=== PATIENT | male | born 1950 | race Caucasian/White ===

== ENCOUNTER 2018-05-04 21:52 | Emergency (ER) | payer OTHER, MEDICARE ==
[2018-05-04] MEDS: Albuterol/Ipratropium 3.0-0.5 MG/3 ML Neb Soln NEB PRN (22:20)
[2018-05-04] MEDS ORDERED: methylPREDNISolone Sodium Succinate 125 MG/2 ML SDV IVPUSH ONE (22:35)
[2018-05-04] MEDS ORDERED: Albuterol 0.083% 2.5 MG/3 ML Neb Soln NEB PRN (22:47)
[2018-05-05] MEDS: methylPREDNISolone Sodium Succinate 40 MG/1 ML SDV IVPUSH SCH ×4 (00:19→12:50)
[2018-05-05] MEDS: Sodium Chloride 0.9% 1,000 ML IV SCH ×2 (00:46→08:43)
[2018-05-05] MEDS: Azithromycin 250 MG Tab PO SCH ×2 (00:46→10:48)
[2018-05-05] MEDS ORDERED: LORazepam 0.5 MG Tab ONE (01:06)
[2018-05-05] MEDS: LORazepam 0.5 MG Tab PO ONE ×2 (01:15→02:00)
[2018-05-05] MEDS ORDERED: Albuterol/Ipratropium 3.0-0.5 MG/3 ML Neb Soln ONE (02:49)
--- NOTE | 2018-05-05 07:46 | HP ---
DATE OF SERVICE: 05/04/2018 Observation Admission Note HISTORY OF PRESENT ILLNESS: The patient is a 68-year-old male who comes in today with a chief complaint of shortness of breath. The patient has a history of COPD. He was in about a week ago with a similar COPD exacerbation. [facility] but he got increasingly short of breath tonight and presented to the ER. ALLERGIES: NKDA. CURRENT MEDICATIONS: Hydroxyzine 10 mg p.o. t.i.d., Symbicort 160/4.5, 1 puff b.i.d., alfuzosin 10 mg p.o. daily, and Zocor 20 mg p.o. at bedtime. PHYSICAL EXAMINATION: GENERAL: He is alert, oriented, appears somewhat short of breath. VITAL SIGNS: His pulse is 104, blood pressure is 138/85, temperature is 97.8, respirations 24, O2 saturation is 92% on 2 L. HEENT: Unremarkable other than he has an opacified right eye. LUNGS: Have very decreased breath sounds, really cannot hear much air flow. HEART: Regular sinus rhythm. ABDOMEN: Benign. EXTREMITIES: The patient has some 1+ lower extremity edema. LABORATORY DATA: White count is 9.5, hemoglobin and hematocrit is 12.4 and 36.1. Sodium is low at 122, potassium is good at 4.0, chloride is 90, glucose is 104, BUN is 8, creatinine is 0.76. ASSESSMENT: Chronic obstructive pulmonary disease exacerbation and mild hyponatremia. PLAN: We will go ahead and refer him for observation. I have given him 125 of Solu-Medrol in the ER. We will give him 500 mg of azithromycin p.o. We will put him on the Solu-Medrol 40 mg and probably put him on some prednisone in the morning. The last time the patient was in, his respiratory rate was in the 40s and he looked much worse and he was good to go the next day, so at this time, we are just going to put him in for observation rather than admission. We will put him on some normal saline at 125 mL an hour and give him DuoNeb q.6 and albuterol q.2 hours p.r.n., and I would anticipate that if he is anything like he was the last time, he will turn around fairly quickly. We will likely need to put him on a longer course of prednisone at discharge. He might want to [facility] that [facility] the [facility] whether or not he might benefit from a low dose of prednisone since he has been in twice now in the last week. He will definitely need a longer course and may end up needing a low-dose continuously. I did suggest that he might want to see about getting a doctor closer rather than having to travel [facility]. JOHN
[2018-05-05] MEDS: ALFUZOSIN HCL 10 MG PO SCH ×2 (09:46→10:48)
[2018-05-05] MEDS: HYDROXYZINE HCL 10 MG PO SCH ×2 (09:46→10:49)
[2018-05-05] MEDS: Albuterol/Ipratropium 3.0-0.5 MG/3 ML Neb Soln NEB PRN (10:58)
--- NOTE | 2018-05-05 17:06 | CR ---
DATE OF SERVICE: 05/04/18 CLINICAL DATA: SOB PA AND LATERAL CHEST: Comparison is made to a prior exam dated 04/28/16. The heart size is normal. The lungs remain hyperexpanded but clear. No pneumothorax. No pleural effusions. No evidence of acute intrathoracic disease. [id number] [facility]
[2018-05-05] MEDS ORDERED: Non-Formulary Medication 1 Each (Budesonide/Formoterol Fumarate [Symbicort 160-4.5 Mcg Inh IH SCH (20:00)
[2018-05-05] MEDS ORDERED: Non-Formulary Medication 1 Each (Simvastatin [Zocor] 20 MG) PO SCH (20:00)
--- NOTE | 2018-05-15 18:42 | PCM.DCSUM1 ---
Discharge Summary - Hospital Course HPI Initial Comments: 68 yr male placed on observation with COPD exacerbation and hyponatremia. Solu- Medrol IV and Azithromycin given with duoneb. Pt has been using the incentive spirometer. He is feeling better today, will discharge to home to care of . Will discharge with a Prednisone taper and Azithromycin. Diagnosis: Stroke: No - Discharge Data Discharge Date: 05/05/18 Discharge Disposition: Home, Self-Care 01 Condition: Good - Discharge Diagnosis/Problem(s) (1) COPD (chronic obstructive pulmonary disease) SNOMED Code(s): 95876722 ICD Code: J44.9 - CHRONIC OBSTRUCTIVE PULMONARY DISEASE, UNSPECIFIED Status : Acute (2) Hyponatremia SNOMED Code(s): 11161678 ICD Code: E87.1 - HYPO-OSMOLALITY AND HYPONATREMIA Status: Acute - Patient Instructions Diet: Regular Diet as Tolerated Activity: As Tolerated Showering/Bathing: May Shower - Discharge Plan *PRESCRIPTION DRUG MONITORING PROGRAM REVIEWED*: Not Applicable *COPY OF PRESCRIPTION DRUG MONITORING REPORT IN PATIENT JACOB: Not Applicable Prescriptions/Med Rec: Azithromycin 500 mg PO DAILY #5 tablet predniSONE [Prednisone] 10 mg PO DAILY #50 tablet Home Medications: Home Meds Alfuzosin HCl [Alfuzosin HCl ER] 10 mg PO DAILY 04/28/18 [History] Budesonide/Formoterol Fumarate [Symbicort 160-4.5 Mcg Inhaler] 1 puff IH BID [History] Simvastatin [Zocor] 20 mg PO BEDTIME 04/28/18 [History] hydrOXYzine HCl [Atarax] 10 mg PO TID 04/28/18 [History] Azithromycin 500 mg PO DAILY #5 tablet 05/05/18 [Rx] predniSONE [Prednisone] 10 mg PO DAILY #50 tablet 05/05/18 [Rx] Oxygen Therapy Mode: Nasal Cannula Oxygen Flow Rate (L/min): 1 Maintain SpO2% greater than: 92 Patient Handouts: Chronic Obstructive Pulmonary Disease, [id number], Azithromycin tablets, CPAP and BiPAP Information, Prednisone tablets Forms: ED Department Discharge Referrals: PCP,None [Primary Care Provider] - - Discharge Summary/Plan Comment DC Time >30 min.: No Discharge Summary/Plan Comment: Will discharge today with Prednisone taper and Azithromycin. Pt should F/U with PCP this week. Discussed possible need for daily Prednisone. Recommend rest and hydration to thin secretions. Discussed option of PCP closer to home as pt has to travel to [place] for all his appointments. He will check at his next appointment to see if this can be approved. Return to ER if symptoms worsen or persist. - General Info Date of Service: 05/05/18 Admission Dx/Problem (Free Text: COPD exacerbation and hyponatremia Subjective Update: Pt states he is feeling better today and would like to go home. - Review of Systems General: Reports: Weakness HEENT: Reports: No Symptoms Pulmonary: Reports: Cough, Sputum Cardiovascular: Reports: Dyspnea on Exertion Gastrointestinal: Reports: No Symptoms Genitourinary: Reports: No Symptoms Musculoskeletal: Reports: No Symptoms Skin: Reports: No Symptoms Neurological: Reports: No Symptoms Psychiatric: Reports: No Symptoms - Patient Data Vitals - Most Recent: Last Vital Signs Temp 97.9 F 05/05/18 09:00 Pulse 99 05/05/18 09:00 Resp 16 05/05/18 06:00 BP 126/77 05/05/18 09:00 Pulse Ox 96 05/05/18 09:00 Weight - Most Recent: 106 lb 12.8 oz Med Orders - Current: Current Medications Discontinued Medications Albuterol (Proventil Neb Soln) 2.5 mg NEB Q2H PRN PRN Reason: Shortness of Breath Last Admin: 05/05/18 00:46 Dose: 2.5 mg Albuterol/Ipratropium (Duoneb 3.0-0.5 Mg/3 Ml) 3 ml NEB Q6H PRN PRN Reason: Shortness of Breath Last Admin: 05/05/18 10:58 Dose: 3 ml Albuterol/Ipratropium (Duoneb 3.0-0.5 Mg/3 Ml) 3 ml .ROUTE .STK-MED ONE Stop: 05/05/18 02:50 Azithromycin (Zithromax) 500 mg PO DAILY [facility] [place] Last Admin: 05/05/18 10:48 Dose: 500 mg Sodium Chloride (Normal Saline) 1,000 mls @ 125 mls/hr IV ASDIRECTED [facility] [place] Last Admin: 05/05/18 08:43 Dose: 125 mls/hr Lorazepam (Ativan) Confirm Administered Dose 0.5 mg .ROUTE .STK-MED ONE Stop: 05/05/18 01:07 Last Admin: 05/05/18 02:18 Dose: Not Given Lorazepam (Ativan) 0.5 mg PO ONETIME ONE Stop: 05/05/18 01:17 Last Admin: 05/05/18 02:00 Dose: 0.5 mg Methylprednisolone Sodium Succinate (Solu-Medrol) 125 mg IVPUSH ONETIME ONE Stop: 05/04/18 22:36 Last Admin: 05/04/18 22:45 Dose: 125 mg Methylprednisolone Sodium Succinate (Solu-Medrol) 40 mg IVPUSH Q6H [facility] [place] Last Admin: 05/05/18 12:50 Dose: Not Given Non-Formulary Medication (Alfuzosin Hcl [Alfuzosin Hcl Er]) 10 mg PO DAILY [facility] [place] Last Admin: 05/05/18 10:48 Dose: 10 mg Non-Formulary Medication (Hydroxyzine Hcl [Hydroxyzine]) 10 mg PO TID [facility] [place] Last Admin: 05/05/18 10:49 Dose: 10 mg Non-Formulary Medication (Simvastatin [Zocor]) 20 mg PO BEDTIME [facility] [place] Non-Formulary Medication (Budesonide/Formoterol Fumarate [Symbicort 160-4.5 Mcg Inhaler]) 1 puff IH BID LETICIA - Exam Quality Assessment: Reports: Supplemental Oxygen General: Reports: Alert, Oriented, Cooperative, No Acute Distress HEENT: Reports: Pupils Equal, Mucous Membr. Moist/[place] Neck: Reports: Supple, Trachea Midline Lungs: Reports: Decreased Breath Sounds (to bases), Wheezing (Occasional wheeze noted and clears with cough). Denies: Rales Cardiovascular: Reports: Regular Rate, Regular Rhythm GI/Abdominal Exam: Normal Bowel Sounds, Soft, Non-Tender Back Exam: Reports: Normal Inspection Extremities: Other (Mild pedal edema) Skin: Reports: Warm, Dry Neurological: Reports: No New Focal Deficit, Normal Speech, Strength Equal Bilateral Psy/Mental Status: Reports: Alert, Normal Affect, Normal Mood
== END 2018-05-05 13:36 | disposition home or self-care (01) ==
LOC: LB.ED 21:52 → LB.MS 22:41 → UNDOADMOB 23:15 → LB.MS 23:15
PROVIDERS: ADMIT Family Medicine; ATTEND Family Medicine
DX: J44.1 Chronic obstructive pulmonary disease with (acute) exacerbation (principal); E87.1 Hypo-osmolality and hyponatremia; Z79.899 Other long term (current) drug therapy
CPT/HCPCS: 36415; 71046; 80048; 85025; 96361; 96374; 96376; 99284; A9270; G0378; J2920; J2930; J7030; J7620-GY

== ENCOUNTER 2018-08-23 07:04 | Emergency (ER) | payer MEDICARE, OTHER ==
[2018-08-23] MEDS: Albuterol/Ipratropium 3.0-0.5 MG/3 ML Neb Soln NEB PRN (08:02)
[2018-08-23] MEDS: Budesonide 0.5 MG/2 ML Neb Susp NEB ONE (08:11)
[2018-08-23] MEDS: methylPREDNISolone Sodium Succinate 125 MG/2 ML SDV IVPUSH ONE (08:16)
[2018-08-23] MEDS ORDERED: Azithromycin 250 MG Tab ONE (09:00)
[2018-08-23] MEDS ORDERED: predniSONE 10 MG Tab ONE (09:00)
[2018-08-23] MEDS: Budesonide 0.5 MG/2 ML Neb Susp ONE (11:29)
[2018-08-23] MEDS: Albuterol/Ipratropium 3.0-0.5 MG/3 ML Neb Soln ONE (11:29)
[2018-08-23] MEDS: methylPREDNISolone Sodium Succinate 125 MG/2 ML SDV ONE (11:29)
--- NOTE | 2018-08-23 16:03 | ER ---
HISTORY OF PRESENT ILLNESS: A 68-year-old male who comes in by ambulance with complaints of shortness of breath, coughing, and feeling weak. The patient has history of COPD and he feels this is another flareup. Symptoms started about 4 days ago, but overnight it got worse. He does have DuoNeb at home and he takes Pulmicort per nebulizer b.i.d. at home as well. The patient states he has been using his DuoNeb more often than he usually does, but he seems like he just keeps getting slowly worse. The patient has not had any problems with nausea or vomiting and he is not aware of running a fever. OBJECTIVE: GENERAL APPEARANCE: The patient is awake and alert. He is in mild respiratory distress. VITAL SIGNS: Reviewed. He has a temp of 100 degrees, blood pressure initially 197/98, respirations 24, O2 sats are 88% on room air. HEENT: Oral mucous membranes are dry. Tonsils are not enlarged or injected. LUNGS: Reveals severe reduced air exchange and scattered wheezes. I do not hear any rales or rhonchi. CARDIAC: Heart sounds distinct. SKIN: Warm and dry. The patient has just mild edema on both lower legs and ankles, approximately 1+. INITIAL TREATMENT PLAN: DuoNeb was given followed by Pulmicort treatment. I also gave the patient Solu-Medrol 125 mg IV. LABORATORY AND X-RAY DATA: Today include a CBC showing a white count of 8.6, neutrophils are 68.5. Comprehensive metabolic panel shows a sodium level of 127, chloride is 89. BNP is 367. DIAGNOSIS: Chronic obstructive pulmonary disease exacerbation. TREATMENT PLAN: The patient responded quickly to the initial treatment measures and within about 20 minutes, stated that he felt significantly better. A chest x-ray was obtained approximately at this time showing chronic changes, no pneumonia. I had a discussion with the patient and his family about staying in the hospital for a day or so for monitoring versus sending him home with medications and they all feel comfortable with the patient being discharged with the right medications. I will therefore send him home with prednisone 40 mg a day for 3 days, then 30 mg a day for 1 day that is all many tablets we have in our bottle. The patient has an appointment coming up [facility] on [facility], which will work out well. I also will put him on a Z-Timur. He will take the first dose of Zithromax here in the emergency room. The patient is to rest and use his home medications as directed. [facility] Followup should be sooner here as needed. MIREYA/MODL /[id number]
--- NOTE | 2018-08-24 11:46 | CR ---
Date of Service: 08/23/18 Clinical Data: SOB - COPD. [place] CHEST: Comparison is made to a prior exam dated 05/04/18. The heart size is normal. There is calcification of the aortic arch. There are emphysematous changes throughout both lungs . There is a focus of increased density in the left lung base adjacent to the left hemidiaphragm consistent with basilar atelectasis or infiltrate. There are atelectatic/ fibrotic changes in the right mid lung lateral to the right hilum. No pneumothorax. No pleural effusions. The right hilum does appear mildly prominent. It is probably accentuated by the poor inspiration. It does appear significantly changed from the prior exam. The remainder of the exam is unchanged from the prior. [id number] [facility]TD[facility]
== END 2018-08-23 09:40 | disposition home or self-care (01) ==
LOC: LB.ED 07:04
DX: J44.1 Chronic obstructive pulmonary disease with (acute) exacerbation (principal)
CPT/HCPCS: 36415; 71045; 80053; 83880; 85025; 87070; 87205; 96374; 99285; A0425; A0429; A9270; J2930; 99284; J7620-GY

== ENCOUNTER 2018-09-15 09:47 | Emergency (ER) | payer MEDICARE, OTHER ==
--- NOTE | 2018-09-15 10:33 | EDM.PDOC ---
ED HPI GENERAL MEDICAL PROBLEM - General Chief Complaint: Respiratory Problem Stated Complaint: short of breath Time Seen by Provider: 09/15/18 10:25 Source of Information: Reports: Patient, Family, RN History Limitations: Reports: No Limitations - History of Present Illness INITIAL COMMENTS - FREE TEXT/NARRATIVE: 68 yr male presents with shortness of breath. States he has a history of this and was told to come in when this starts to prevent hospitalizations. States last week he did start on Prednisone 10 mg PO daily for the last few days, medicine from the [place]. He is talking and no respiratory distress noted. He does have home oxygen and portable oxygen. He did take the Lasix today. SpO2= 99%. states he was struggling with breathing yesterday and today. - Related Data Allergies Allergy/AdvReac Type Severity Reaction Status Date / Time No Known Allergies Allergy Verified 04/28/18 22:35 Home Meds: Home Meds Alfuzosin HCl [Alfuzosin HCl ER] 10 mg PO DAILY 04/28/18 [History] Budesonide/Formoterol Fumarate [Symbicort 160-4.5 Mcg Inhaler] 1 puff IH BID [History] Simvastatin [Zocor] 20 mg PO BEDTIME 04/28/18 [History] predniSONE [Prednisone] 10 mg PO DAILY #50 tablet 05/05/18 [Rx] Azithromycin 500 mg PO DAILY #5 tablet 09/15/18 [Rx] Furosemide [Lasix] 20 mg PO DAILY 09/15/18 [History] Ipratropium/Albuterol Sulfate [Iprat-Albut 0.5-3(2.5) mg/3 ml] 0.5 - 3 mg IH QID 09/15/18 [History] LORazepam 0.5 mg PO TID 09/15/18 [History] predniSONE [Prednisone] 10 mg PO DAILY #30 tablet 09/15/18 [Rx] Past Medical History HEENT History: Reports: Hard of Hearing Cardiovascular History: Reports: High Cholesterol Respiratory History: Reports: COPD Genitourinary History: Reports: Retention, Urinary, Other (See Below) Other Genitourinary History: stress incontinence Musculoskeletal History: Reports: Other (See Below) Other Musculoskeletal History: Generalized weakness Psychiatric History: Reports: Anxiety - Infectious Disease History Infectious Disease History: Reports: Chicken Pox - Past Surgical History Male Surgical History: Reports: None Social & Family History - Family History Family Medical History: Noncontributory - Caffeine Use Caffeine Use: Reports: Coffee ED ROS GENERAL - Review of Systems Review Of Systems: See Below Constitutional: Reports: No Symptoms HEENT: Reports: No Symptoms Respiratory: Reports: Shortness of Breath, Cough Cardiovascular: Reports: Dyspnea on Exertion GI/Abdominal: Reports: No Symptoms : Reports: No Symptoms Musculoskeletal: Reports: No Symptoms Skin: Reports: No Symptoms Neurological: Reports: No Symptoms Psychiatric: Reports: Anxiety Hematologic/Lymphatic: Reports: No Symptoms ED EXAM, GENERAL - Physical Exam Exam: See Below Exam Limited By: No Limitations General Appearance: Alert, WD/WN, No Apparent Distress Ears: Hearing Grossly Normal Nose: Normal Inspection, Normal Mucosa Throat/Mouth: Normal Inspection, Normal Voice, No Airway Compromise Head: Atraumatic, Normocephalic Neck: Normal Inspection, Supple, Non-Tender Respiratory/Chest: Decreased Breath Sounds, Wheezing Cardiovascular: Normal Peripheral Pulses, Regular Rate, Rhythm, No Edema Extremities: No Pedal Edema Neurological: Alert, Oriented, Normal Cognition Psychiatric: Normal Affect, Normal Mood Skin Exam: Warm, Dry, Intact, Normal Color Course - Vital Signs Last Recorded V/S: Last Vital Signs Temp 98.5 F 09/15/18 11:50 Pulse 93 09/15/18 11:50 Resp 20 09/15/18 11:50 BP 128/73 09/15/18 11:50 Pulse Ox 97 09/15/18 11:50 - Orders/Labs/Meds Orders: Active Orders 24 hr Category Date Time Status RT Aerosol Therapy [RC] ASDIRECTED Care 09/15/18 10:45 Active Saline Lock Insert [OM.PC] Routine Oth 09/15/18 10:34 Ordered Labs: Laboratory Tests 09/15/18 09/15/18 09/15/18 Range/Units 10:50 10:50 11:55 WBC 6.7 D (4.0-11.0) K/uL RBC 4.29 L (4.50-6.50) M/uL Hgb 12.8 L (13.0-18.0) g/dL Hct 38.2 L (40.0-54.0) % MCV 89 (76-96) fL MCH 29.8 (27.0-32.0) pg MCHC 33.5 (31.0-35.0) g/dL RDW 13.5 (11.0-16.0) % Plt Count 251 (150-400) K/uL MPV 8.8 (6.0-10.0) fL Neut % (Auto) 39.2 L (45.0-70.0) % Lymph % (Auto) 36.3 (20.0-40.0) % [place] % (Auto) 14.3 H (3.0-10.0) % Eos % (Auto) 9.2 H (1.0-5.0) % Baso % (Auto) 1.0 H (0.0-0.5) % Neut # (Auto) 2.64 (2.00-7.50) K/uL Lymph # (Auto) 2.44 (1.50-4.00) K/uL [place] # (Auto) 0.96 H (0.20-0.80) K/uL Eos # (Auto) 0.62 H (0.04-0.40) K/uL Baso # (Auto) 0.07 (0.02-0.10) K/uL Sodium 133 L (136-145) mmol/L Potassium 4.1 (3.5-5.1) mmol/L Chloride 93 L (98-107) mmol/L Carbon Dioxide 34.3 H (21.0-32.0) mmol/L Anion Gap 9.8 (5.0-15.0) mmol/L BUN 7 L (8-26) mg/dL Creatinine 0.71 D (0.70-1.30) mg/dL Est Cr Clr Drug Dosing TNP Estimated GFR (MDRD) > 60 (>60) MLS/MIN BUN/Creatinine Ratio 9.9 (6-25) Glucose 109 H (74-100) mg/dL Calcium 8.7 (8.5-10.1) mg/dL Urine Color Yellow Urine Appearance Clear (CLEAR) Urine pH 7.0 (5.0-8.0) Ur Specific [place] 1.015 (1.003-1.030) Urine Protein Negative (NEGATIVE) mg/dL Urine Glucose (UA) Negative (NEGATIVE) mg/dL Urine Ketones Negative (NEGATIVE) mg/dL Urine Occult Blood Negative (NEGATIVE) Urine Nitrite Negative (NEGATIVE) Urine Bilirubin Negative (NEGATIVE) Urine Urobilinogen 0.2 (0.2-1.0) E.U./dL Ur Leukocyte Esterase Negative (NEGATIVE) Urine RBC Not seen /HPF Urine WBC Not seen /HPF Meds: Medications Discontinued Medications Generic Name Dose Route Start Last Admin Trade Name Freq PRN Reason Stop Dose Admin Albuterol/Ipratropium 3 ml 09/15/18 10:44 09/15/18 10:55 Duoneb 3.0-0.5 Mg/3 Ml NEB 09/15/18 23:59 3 ml Q4H PRN Administration Shortness of Breath Azithromycin Confirm 09/15/18 11:40 09/15/18 16:24 Zithromax Administered 09/15/18 11:41 Not Given Dose 500 mg .ROUTE .STK-MED ONE Azithromycin 500 mg 09/15/18 11:50 09/15/18 16:25 Zithromax PO 09/15/18 11:51 500 mg ONETIME ONE Administration Methylprednisolone Sodium Succinate 125 mg 09/15/18 10:34 09/15/18 11:14 Solu-Medrol IM 09/15/18 10:35 125 mg ONETIME ONE Administration Methylprednisolone Sodium Succinate Confirm 09/15/18 11:17 09/15/18 11:17 Solu-Medrol Administered 09/15/18 11:18 Not Given Dose 125 mg .ROUTE .STK-MED ONE Sodium Chloride 10 ml 09/15/18 10:34 Saline Flush FLUSH ASDIRECTED PRN Keep Vein Open Departure - Departure Time of Disposition: 12:07 Disposition: Home, Self-Care 01 Condition: Good Clinical Impression: COPD (chronic obstructive pulmonary disease) - Discharge Information *PRESCRIPTION DRUG MONITORING PROGRAM REVIEWED*: Not Applicable *COPY OF PRESCRIPTION DRUG MONITORING REPORT IN PATIENT JACOB: Not Applicable (F/ U with Primary care provider next week.) Prescriptions: Azithromycin 500 mg PO DAILY #5 tablet predniSONE [Prednisone] 10 mg PO DAILY #30 tablet Instructions: Chronic Obstructive Pulmonary Disease Exacerbation, [id number] Referrals: PCP,Unknown [Primary Care Provider] - Forms: ED Department Discharge Additional Instructions: Discharge home. Activity as tolerated, diet as tolerated. Prescriptions sent over to pharmacy. Follow up in clinic with your primary provider. - My Orders Last 24 Hours: My Active Orders 09/15/18 10:34 Saline Lock Insert [OM.PC] Routine 09/15/18 10:45 RT Aerosol Therapy [RC] ASDIRECTED - Assessment/Plan Last 24 Hours: My Active Orders 09/15/18 10:34 Saline Lock Insert [OM.PC] Routine 09/15/18 10:45 RT Aerosol Therapy [RC] ASDIRECTED Plan: COPD exacerbation: Pt shortness of breath improved with Duo-neb treatment and Solu-medrol IM. Unable to obtain IV access. Will discharge to care of with Azithromycin and Prednisone taper. F/U with PCP next week.
[2018-09-15] MEDS ORDERED: methylPREDNISolone Sodium Succinate 125 MG/2 ML SDV IM ONE (10:34)
[2018-09-15] MEDS ORDERED: Sodium Chloride 0.9% 10 ML Syringe FLUSH PRN (10:34)
[2018-09-15] MEDS ORDERED: Albuterol/Ipratropium 3.0-0.5 MG/3 ML Neb Soln NEB PRN (10:44)
[2018-09-15] MEDS ORDERED: methylPREDNISolone Sodium Succinate 125 MG/2 ML SDV ONE (11:17)
[2018-09-15] MEDS ORDERED: Azithromycin 500 MG Tab ONE (11:40)
[2018-09-15] MEDS ORDERED: Azithromycin 500 MG Tab PO ONE (11:50)
== END 2018-09-15 12:07 | disposition home or self-care (01) ==
LOC: LB.ED 09:47
DX: J44.9 Chronic obstructive pulmonary disease, unspecified (principal); E78.00 Pure hypercholesterolemia, unspecified; F41.9 Anxiety disorder, unspecified; Z79.899 Other long term (current) drug therapy
CPT/HCPCS: 36415; 80048; 81001; 85025; 96372; 99284-25; A9270-GY; J2930; J7620-GY

== ENCOUNTER 2019-01-26 16:40 | Emergency (ER) | payer OTHER, MEDICARE ==
--- NOTE | 2019-01-26 17:04 | EDM.PDOC ---
ED HPI GENERAL MEDICAL PROBLEM - General Chief Complaint: ENT Problem Stated Complaint: NOSE BLEEDS Time Seen by Provider: 01/26/19 16:55 Source of Information: Reports: Patient, Family, RN History Limitations: Reports: No Limitations - History of Present Illness INITIAL COMMENTS - FREE TEXT/NARRATIVE: 68 yr male presents with epistaxis. States this has happened on/off at least tid for a couple days. States he was active and moving wood for winter heat. He did have a nose bleed on the way here and none now. No shortness of breath noted. - Related Data Allergies Allergy/AdvReac Type Severity Reaction Status Date / Time amoxicillin [From Augmentin] Allergy Rash Verified 01/26/19 17:50 clavulanic acid Allergy Rash Verified 01/26/19 17:50 [From Augmentin] Home Meds: Home Meds Alfuzosin HCl [Alfuzosin HCl ER] 10 mg PO DAILY 04/28/18 [History] Budesonide/Formoterol Fumarate [Symbicort 160-4.5 Mcg Inhaler] 1 puff IH BID [History] Simvastatin [Zocor] 20 mg PO BEDTIME 04/28/18 [History] predniSONE [Prednisone] 10 mg PO DAILY #50 tablet 05/05/18 [Rx] Azithromycin 500 mg PO DAILY #5 tablet 09/15/18 [Rx] Furosemide [Lasix] 20 mg PO DAILY 09/15/18 [History] Ipratropium/Albuterol Sulfate [Iprat-Albut 0.5-3(2.5) mg/3 ml] 0.5 - 3 mg IH QID 09/15/18 [History] LORazepam 0.5 mg PO TID 09/15/18 [History] predniSONE [Prednisone] 10 mg PO DAILY #30 tablet 09/15/18 [Rx] Past Medical History HEENT History: Reports: Hard of Hearing Cardiovascular History: Reports: High Cholesterol Respiratory History: Reports: COPD Genitourinary History: Reports: Retention, Urinary, Other (See Below) Other Genitourinary History: stress incontinence Musculoskeletal History: Reports: Other (See Below) Other Musculoskeletal History: Generalized weakness Psychiatric History: Reports: Anxiety - Infectious Disease History Infectious Disease History: Reports: Chicken Pox - Past Surgical History Male Surgical History: Reports: None Social & Family History - Family History Family Medical History: Noncontributory - Caffeine Use Caffeine Use: Reports: Coffee ED ROS ENT - Review of Systems Review Of Systems: See Below Constitutional: Denies: Fever, Chills HEENT: Reports: Glasses, Nosebleed, Other (thirsty) Respiratory: Reports: Other (short of breath on exertion) Cardiovascular: Denies: Chest Pain, Edema GI/Abdominal: Denies: Abdominal Pain Skin: Reports: Other (itchy skin, bruising to arms from itching) Neurological: Reports: No Symptoms Psychiatric: Reports: Anxiety Hematologic/Lymphatic: Reports: Easy Bruising ED EXAM, ENT - Physical Exam Exam: See Below General Appearance: Alert, No Apparent Distress Ears: Normal External Exam, Hearing Grossly Normal Nose: Nasal Tenderness, Septal Deformity, Dried Blood. No: Active Bleeding Mouth/Throat: Other (poor dentition) Head: Atraumatic, Normocephalic Neck: Normal Inspection, Supple, Non-Tender Respiratory/Chest: No Respiratory Distress, Decreased Breath Sounds. No: Crackles, Rhonchi Cardiovascular: Regular Rate, Rhythm, No Edema Extremities: Normal Range of Motion, Non-Tender Neurological: Alert, Oriented, Normal Cognition Psychiatric: Normal Affect, Normal Mood Skin: Warm, Dry, Normal Color, Ecchymosis (to forearms) Course - Vital Signs Last Recorded V/S: Last Vital Signs Temp 99.3 F 01/26/19 16:49 Pulse 97 01/26/19 17:08 Resp 18 01/26/19 16:49 BP 142/84 H 01/26/19 16:49 Pulse Ox 97 01/26/19 17:08 - Orders/Labs/Meds Labs: Laboratory Tests 01/26/19 01/26/19 Range/Units 17:05 17:05 WBC 8.0 (4.0-11.0) K/uL RBC 4.01 L (4.50-6.50) M/uL Hgb 12.7 L (13.0-18.0) g/dL Hct 37.9 L (40.0-54.0) % MCV 95 (76-96) fL MCH 31.7 (27.0-32.0) pg MCHC 33.5 (31.0-35.0) g/dL RDW 13.1 (11.0-16.0) % Plt Count 200 (150-400) K/uL MPV 9.2 (6.0-10.0) fL Neut % (Auto) 61.5 (45.0-70.0) % Lymph % (Auto) 24.3 (20.0-40.0) % [place] % (Auto) 11.1 H (3.0-10.0) % Eos % (Auto) 2.5 (1.0-5.0) % Baso % (Auto) 0.6 H (0.0-0.5) % Neut # (Auto) 4.91 (2.00-7.50) K/uL Lymph # (Auto) 1.94 (1.50-4.00) K/uL [place] # (Auto) 0.89 H (0.20-0.80) K/uL Eos # (Auto) 0.20 (0.04-0.40) K/uL Baso # (Auto) 0.05 (0.02-0.10) K/uL Sodium 135 L (136-145) mmol/L Potassium 4.1 (3.5-5.1) mmol/L Chloride 97 L (98-107) mmol/L Carbon Dioxide 29.8 (21.0-32.0) mmol/L Anion Gap 12.3 (5.0-15.0) mmol/L BUN 10 (8-26) mg/dL Creatinine 0.86 (0.70-1.30) mg/dL Est Cr Clr Drug Dosing 54.61 mL/min Estimated GFR (MDRD) > 60 (>60) MLS/MIN BUN/Creatinine Ratio 11.6 (6-25) Glucose 117 H (74-100) mg/dL Calcium 8.8 (8.5-10.1) mg/dL - Re-Assessments/Exams Free Text/Narrative Re-Assessment/Exam: 01/26/19 18:03 Labs for CBC and BMP completed and reviewed with pt and family. Epistaxis resolved. Recommend use of Bacitracin bid to nares. Bacitracin applied to nares in ER. Refill of Fluconazole for thrush. Itchiness to arms, recommend use of Hydroxyzine for this. States he still has this at home, but isn't very effective for him. States he has been feeling well and has been carrying wood for winter heating. States increase in thirst and drinking lots of water. Recommend to limit water and try using frozen fruit, lemon drops or peppermints to assist with moistening mouth. RTC tomorrow to routine appointment with PCP. Departure - Departure Time of Disposition: 18:00 Disposition: Home, Self-Care 01 Condition: Good Clinical Impression: Epistaxis, Hyponatremia - Discharge Information *PRESCRIPTION DRUG MONITORING PROGRAM REVIEWED*: Not Applicable *COPY OF PRESCRIPTION DRUG MONITORING REPORT IN PATIENT JACOB: Not Applicable Instructions: Nosebleed, [id number] Referrals: Deloris Waggoner, [facility] [Primary Care Provider] - Forms: ED Department Discharge Additional Instructions: Discharge home. Apply Bacitracin in the nose 2 to 3 times a day. Apply with a Q-tip, apply to the inside of nose. Do not go too deep. This will keep the nose moist. Take it easy and do not do too much strenuous activity. Dry water and try to hold it in your mouth before swallowing or try sucking on frozen fruit and hard candy-hold it in your mouth for a bit. Keep clinic appointment tomorrow. Call or return to the ER if you have any questions or concerns. - Assessment/Plan Plan: Epistaxis resolved. Recommend use of Bacitracin bid to nares. Bacitracin applied to nares in ER. Refill of Fluconazole for thrush. Itchiness to arms, recommend use of Hydroxyzine for this. States he still has this at home, but isn't very effective for him. States he has been feeling well and has been carrying wood for winter heating. States increase in thirst and drinking lots of water. Recommend to limit water and try using frozen fruit, lemon drops or peppermints to assist with moistening mouth. Recommend to continue with salt tablets for hyponatremia. RTC tomorrow to routine appointment with PCP.
== END 2019-01-26 18:05 | disposition home or self-care (01) ==
LOC: LB.ED 16:40
DX: R04.0 Epistaxis (principal); E87.1 Hypo-osmolality and hyponatremia; E78.00 Pure hypercholesterolemia, unspecified; J44.9 Chronic obstructive pulmonary disease, unspecified; F41.9 Anxiety disorder, unspecified; Z88.1 Allergy status to other antibiotic agents; Z79.899 Other long term (current) drug therapy
CPT/HCPCS: 36415; 80048; 85025; 99283

== ENCOUNTER 2019-05-29 10:17 | Emergency (ER) | payer OTHER ==
[2019-05-29] MEDS ORDERED: Bupivacaine 0.5% 10 ML SDV INJECT ONE (11:14)
[2019-05-29] MEDS ORDERED: Lidocaine 2% 5 ML SDV INJECT ONE (11:14)
[2019-05-29] MEDS ORDERED: Triamcinolone Acetonide 40 MG/ML 1 ML MDV INJECT ONE (11:14)
[2019-05-29] MEDS ORDERED: Ketorolac 30 MG/ML SDV ONE (11:14)
[2019-05-29] MEDS ORDERED: Ketorolac 30 MG/ML SDV IM ONE (11:14)
[2019-05-29] MEDS ORDERED: LORazepam 0.5 MG Tab PO ONE (11:14)
[2019-05-29] MEDS ORDERED: Triamcinolone Acetonide 40 MG/ML 1 ML MDV ONE ×2 (11:15→11:26)
[2019-05-29] MEDS ORDERED: LORazepam 0.5 MG Tab ONE (11:15)
--- NOTE | 2019-05-29 12:54 | CRLCT ---
DATE OF SERVICE: 05/29/2019 CLINICAL DATA: chest pain Unenhanced chest CT: Multislice axial acquisition through the chest without IV contrast was performed. Comparison is made to a prior exam dated 03/04/2019. The heart size is normal. There are moderate coronary artery calcifications. No significant pericardial effusion. No aortic aneurysm. There are emphysematous changes throughout both lungs. There are linear densities in both lower lungs consistent with linear atelectasis or fibrosis. The lungs are otherwise clear. No pneumothorax. No pleural effusions. No hilar or mediastinal adenopathy. No other significant findings. Dictated and Authenticated by: Dontrell Thorpe MD 05/29/2019 11:10 AM Central Time ([place] & [place]) [facility]ENTERJ[facility]
--- NOTE | 2019-05-29 14:58 | EDM.PDOC ---
ED HPI GENERAL MEDICAL PROBLEM - General Chief Complaint: General Stated Complaint: BREATHING TROUBLES Time Seen by Provider: 05/29/19 10:30 Source of Information: Reports: Patient History Limitations: Reports: No Limitations Middle Back Pain Score (Numeric/FACES): 3 Right Chest Pain Score (Numeric/FACES): 10 - Related Data Allergies Allergy/AdvReac Type Severity Reaction Status Date / Time amoxicillin [From Augmentin] Allergy Rash Verified 05/29/19 10:35 clavulanic acid Allergy Rash Verified 05/29/19 10:35 [From Augmentin] Home Meds: Home Meds Budesonide/Formoterol Fumarate [Symbicort 160-4.5 Mcg Inhaler] 1 puff IH BID [History] Simvastatin [Zocor] 20 mg PO BEDTIME 04/28/18 [History] predniSONE [Prednisone] 10 mg PO DAILY #50 tablet 05/05/18 [Rx] Furosemide [Lasix] 20 mg PO DAILY 09/15/18 [History] Ipratropium/Albuterol Sulfate [Iprat-Albut 0.5-3(2.5) mg/3 ml] 0.5 - 3 mg IH QID 09/15/18 [History] LORazepam 0.5 mg PO TID 09/15/18 [History] predniSONE [Prednisone] 10 mg PO DAILY #30 tablet 09/15/18 [Rx] Past Medical History HEENT History: Reports: Hard of Hearing Cardiovascular History: Reports: High Cholesterol, Hypertension Respiratory History: Reports: COPD Genitourinary History: Reports: Retention, Urinary, Other (See Below) Other Genitourinary History: stress incontinence Musculoskeletal History: Reports: Other (See Below) Other Musculoskeletal History: Generalized weakness Psychiatric History: Reports: Anxiety - Infectious Disease History Infectious Disease History: Reports: Chicken Pox - Past Surgical History Male Surgical History: Reports: None Social & Family History - Family History Family Medical History: Noncontributory - Tobacco Use Smoking Status *Q: Former Smoker Used Tobacco, but Quit: Yes Month/Year Tobacco Last Used: 02/2018 - Caffeine Use Caffeine Use: Reports: Coffee - Alcohol Use Days Per Week of Alcohol Use: 7 Number of Drinks Per Day: 6 Total Drinks Per Week: 42 - Recreational Drug Use Recreational Drug Use: No ED ROS GENERAL - Review of Systems Review Of Systems: Comprehensive ROS is negative, except as noted in HPI. ED EXAM, GENERAL - Physical Exam Exam: See Below General Appearance: Alert, WD/WN, Mild Distress Ears: Normal External Exam Nose: Normal Inspection Throat/Mouth: Normal Inspection Head: Atraumatic, Normocephalic Neck: Normal Inspection Respiratory/Chest: No Respiratory Distress, Lungs Clear Cardiovascular: Normal Peripheral Pulses, Regular Rate, Rhythm Back Exam: Muscle Spasm Extremities: Normal Inspection ED GENERAL MEDICAL PROCEDURES - Additional/Other Procedure(s) Other (Free Text) Procedure(s): Mid upper right back prepped sterilely and trigger point area pinpointed and marked. 2-2-2 27ga needle used to inject area with some immediate relief. No complications. Course - Vital Signs Last Recorded V/S: Last Vital Signs Temp 36.2 C 05/29/19 10:17 Pulse 62 05/29/19 11:34 Resp 18 05/29/19 11:34 BP 134/68 05/29/19 11:34 Pulse Ox 98 05/29/19 11:34 - Orders/Labs/Meds Orders: Active Orders 24 hr Category Date Time Status EKG Documentation Completion [RC] ASDIRECTED Care 05/29/19 10:27 Active Labs: Laboratory Tests 05/29/19 05/29/19 Range/Units 10:48 10:48 WBC 11.4 H D (4.0-11.0) K/uL RBC 4.58 (4.50-6.50) M/uL Hgb 14.1 (13.0-18.0) g/dL Hct 42.4 (40.0-54.0) % MCV 93 (76-96) fL MCH 30.8 (27.0-32.0) pg MCHC 33.3 (31.0-35.0) g/dL RDW 13.7 (11.0-16.0) % Plt Count 236 (150-400) K/uL MPV 9.6 (6.0-10.0) fL Neut % (Auto) 66.7 (45.0-70.0) % Lymph % (Auto) 19.8 L (20.0-40.0) % [place] % (Auto) 12.0 H (3.0-10.0) % Eos % (Auto) 1.1 (1.0-5.0) % Baso % (Auto) 0.4 (0.0-0.5) % Neut # (Auto) 7.59 H (2.00-7.50) K/uL Lymph # (Auto) 2.25 (1.50-4.00) K/uL [place] # (Auto) 1.36 H (0.20-0.80) K/uL Eos # (Auto) 0.12 (0.04-0.40) K/uL Baso # (Auto) 0.04 (0.02-0.10) K/uL Sodium 137 (136-145) mmol/L Potassium 4.0 (3.5-5.1) mmol/L Chloride 98 (98-107) mmol/L Carbon Dioxide 31.3 (21.0-32.0) mmol/L Anion Gap 11.7 (5.0-15.0) mmol/L BUN 8 (8-26) mg/dL Creatinine 0.90 (0.70-1.30) mg/dL Est Cr Clr Drug Dosing 54.88 mL/min Estimated GFR (MDRD) > 60 (>60) MLS/MIN BUN/Creatinine Ratio 8.9 (6-25) Glucose 96 (74-100) mg/dL Calcium 9.1 (8.5-10.1) mg/dL Total Bilirubin 0.5 D (0.0-1.0) mg/dL AST 35 (15-37) U/L ALT 43 (12-78) U/L Alkaline Phosphatase 116 (46-116) U/L Troponin I < 0.017 (0.000-0.060) ng/mL Total Protein 6.9 (6.4-8.2) g/dL Albumin 3.6 (3.4-5.0) g/dL Globulin 3.3 (2.2-4.2) g/dL Albumin/Globulin Ratio 1.1 (0.8-2.0) Meds: Medications Discontinued Medications Generic Name Dose Route Start Last Admin Trade Name Freq PRN Reason Stop Dose Admin Bupivacaine HCl 2 ml 05/29/19 11:14 Sensorcaine-Mpf 0.5% INJECT 05/29/19 11:15 ONETIME ONE Ketorolac Tromethamine Confirm 05/29/19 11:14 05/29/19 11:19 Toradol Administered 05/29/19 11:15 Not Given Dose 30 mg .ROUTE .STK-MED ONE Ketorolac Tromethamine 30 mg 05/29/19 11:14 05/29/19 11:12 Toradol IM 05/29/19 11:15 30 mg ONETIME ONE Administration Lidocaine 2 ml 05/29/19 11:14 Xylocaine-Mpf 2% INJECT 05/29/19 11:15 ONETIME ONE Lorazepam Confirm 05/29/19 11:15 05/29/19 11:18 Ativan Administered 05/29/19 11:16 Not Given Dose 0.5 mg .ROUTE .STK-MED ONE Lorazepam 0.5 mg 05/29/19 11:14 05/29/19 11:10 Ativan PO 05/29/19 11:15 0.5 mg ONETIME ONE Administration Triamcinolone Acetonide Confirm 05/29/19 11:15 05/29/19 11:19 Kenalog-40 Administered 05/29/19 11:16 Not Given Dose 40 mg .ROUTE .STK-MED ONE Triamcinolone Acetonide 80 mg 05/29/19 11:14 Kenalog-40 INJECT 05/29/19 11:15 ONETIME ONE Triamcinolone Acetonide Confirm 05/29/19 11:26 Kenalog-40 Administered 05/29/19 11:27 Dose 40 mg .ROUTE .STK-MED ONE Departure - Departure Time of Disposition: 11:50 Disposition: Home, Self-Care 01 Condition: Good Clinical Impression: Muscle strain of upper back - Discharge Information Instructions: Muscle Pain, Adult, Sinus Tachycardia, Triamcinolone injection Referrals: PCP,None [Primary Care Provider] - Forms: ED Department Discharge Additional Instructions: Discharge home. Follow up in the clinic in a couple weeks to discuss heart rate and muscle pain. Miralax to help with bowel movements. Diet: Liquid diet until you have a bowel movement. Call or return to the ER if Sepsis Event Note - Evaluation Sepsis Screening Result: No Definite Risk - Focused Exam Vital Signs: Vital Signs Temp Pulse Resp BP Pulse Ox 05/29/19 11:34 62 18 134/68 98 05/29/19 10:25 101 H 18 133/85 98 05/29/19 10:17 36.2 C 111 H 18 148/87 H 95 Date Exam was Performed: 05/29/19 Time Exam was Performed: 15:04 - Problem List & Annotations (1) Muscle strain of upper back SNOMED Code(s): 474198897 Code(s): S29.012A - STRAIN OF MUSCLE AND TENDON OF BACK WALL OF THORAX, INIT Status: Acute Priority: High - Problem List Review Problem List Initiated/Reviewed/Updated: Yes - My Orders Last 24 Hours: My Active Orders 05/29/19 10:27 EKG Documentation Completion [RC] ASDIRECTED - Assessment/Plan Last 24 Hours: My Active Orders 05/29/19 10:27 EKG Documentation Completion [RC] ASDIRECTED Plan: Counseled on supportive care and conservative management. Discussed f/u as directed and rtc as needed for the same symptoms. F/U in ER as needed for chest pain.
== END 2019-05-29 12:10 | disposition home or self-care (01) ==
LOC: LB.ED 10:17
DX: S29.012A Strain of muscle and tendon of back wall of thorax, initial encounter (principal); I10 Essential (primary) hypertension; J44.9 Chronic obstructive pulmonary disease, unspecified; F41.9 Anxiety disorder, unspecified; E78.00 Pure hypercholesterolemia, unspecified; Z88.0 Allergy status to penicillin; Z88.1 Allergy status to other antibiotic agents; Z79.899 Other long term (current) drug therapy; Z79.51 Long term (current) use of inhaled steroids; X58.XXXA Exposure to other specified factors, initial encounter
CPT/HCPCS: 20552; 36415; 71250; 80053; 84484; 85025; 93005; 96372; 99285-25; A9270-GY; J1885; J2001; J3301; J3490

== ENCOUNTER 2019-10-26 11:39 | Emergency (ER) | payer MEDICARE, OTHER ==
[2019-10-26] MEDS ORDERED: Ketorolac 30 MG/ML SDV IM ONE (13:04)
[2019-10-26] MEDS ORDERED: Ketorolac 30 MG/ML SDV ONE (13:14)
--- NOTE | 2019-10-26 14:25 | ER ---
REASON FOR EMERGENCY ROOM VISIT: Low back pain. HISTORY: This 69-year-old man has had increasingly severe chronic mid to low back pain over the past 5 months. He has been seen here by Dr. Montero and followed for that particular problem as well as his general medical needs. In addition, he has been [facility] by [facility] and [facility] As a result of this strangulation in his care, there has been frustration and possibly some confusion along the way. Nonetheless, in the course of his evaluation over the past few months he has had several CT and MRI scans of his back, which have demonstrated partial compression fractures of T11-L4. None of these compression fractures appear to be over 20%. He has mild to minimal disk bulging and mild- to-moderate foraminal stenosis. He has never had any radiculopathy that I can tell. He is scheduled to be seen again at his Pain Clinic in a week or so. Over the past 3 days, his low back pain has been increasingly worse. He has not had any, the pain is localized more to the left of the midline, but is also present on the right side. It does not radiate down his leg. He has not had any numbness or muscle weakness. He has not had any issues with continence of stool or urine. At the Pain Clinic in [place], he had what sounds like steroid trigger point injections 3 or 4 weeks ago and this resulted in complete resolution of his pain that lasted about 3 weeks until his most recent flare-up of symptoms. PAST MEDICAL HISTORY: 1. Hypertension. 2. Hypercholesterolemia. 3. COPD. 4. Decreased hearing. 5. Urinary incontinence. SOCIAL HISTORY: He is retired and lives with his . He is a former smoker and is still an active drinker. MEDICATIONS: Reviewed. They include: 1. Prednisone 10 mg p.o. daily. 2. Simvastatin 20 mg p.o. at bedtime. 3. Lorazepam 0.5 mg p.o. t.i.d. 4. Ipratropium and albuterol inhaler q.i.d. 5. Lasix 20 mg p.o. daily. 6. Symbicort. ALLERGIES: TO AMOXICILLIN, CLAVULANIC ACID. REVIEW OF SYSTEMS: Pertinent positives and negatives as listed in the HPI. PHYSICAL EXAMINATION: GENERAL: He is in considerable pain. We had to help him out of the wheelchair to get him on to a bed for examination. CHEST: Examination of his chest, he does have some scattered rhonchi, which I suspect is chronic. It does clear after he coughs. CARDIAC: Regular rate without murmur. ABDOMEN: Soft, nontender. MUSCULOSKELETAL: Examination of his spine, he is actually not very tender in palpation or percussion over the spinous processes. He does have an area of maximal tenderness corresponding to the left sacroiliac area. There seems to be a trigger point in this area, to a lesser extent he also has it on the right. Straight leg raising was negative. Muscle strength, bulk and tone is normal bilaterally in both lower extremities. Deep tendon reflexes are symmetrical. He has normal sensation to crude touch. 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 Other diagnoses as listed above. PLAN: He received Toradol 30 mg IM x1, and that afforded him considerable relief. I explained to him that the genao to his pain management going forward is going to depend upon thoughtful coordination between his primary care provider, Dr. Montero, the [place] and the Pain [facility] in [place]. I had a long talk regarding the potential pitfalls of chronic opioid use and the importance of considering other alternatives. I told him that ideally he we can stay on top of things, so he does not have to rely on ER visits for short-term analgesic prescriptions. I did give him a prescription for hydrocodone 10/325, dispensed #10, to take 1 every 4 hours p.r.n. pain. He did have an appointment with Dr. Montero this morning, but for some reason there was a scheduling error, so I urged him to try to reschedule this appointment and to keep his appointment with the Pain Clinic in [place]. He and his both understand and agree. All questions were answered. MATEUSZ/ALMA /[id number]
== END 2019-10-26 13:40 | disposition home or self-care (01) ==
LOC: LB.ED 11:39
DX: G89.29 Other chronic pain (principal); M54.5 Low back pain; M19.90 Unspecified osteoarthritis, unspecified site; I10 Essential (primary) hypertension; J44.9 Chronic obstructive pulmonary disease, unspecified; E78.00 Pure hypercholesterolemia, unspecified; Z87.891 Personal history of nicotine dependence; Z79.899 Other long term (current) drug therapy; Z88.1 Allergy status to other antibiotic agents
CPT/HCPCS: 96372; 99283; J1885

== ENCOUNTER 2019-11-18 15:00 | Observation (INO) | payer OTHER ==
[2019-11-18] MEDS ORDERED: Sodium Chloride 0.9% 10 ML Syringe FLUSH PRN (15:15)
[2019-11-18] MEDS ORDERED: Potassium Chloride 10% 20 MEQ/15 ML Soln 15 ML UD Cup PO ONE (15:23)
[2019-11-18] MEDS: Diltiazem 25 MG/5 ML SDV IVPUSH ONE ×2 (15:39→16:05)
[2019-11-18] MEDS ORDERED: predniSONE 20 MG Tab PO SCH (16:00)
[2019-11-18] MEDS ORDERED: predniSONE 10 MG Tab PO SCH ×2 (16:00)
[2019-11-18] MEDS ORDERED: Acetaminophen/HYDROcodone 325-10 MG Tab PO PRN (16:12)
[2019-11-18] MEDS ORDERED: Albuterol/Ipratropium 3.0-0.5 MG/3 ML Neb Soln INH PRN (16:12)
[2019-11-18] MEDS ORDERED: LORazepam 0.5 MG Tab PO PRN (16:12)
[2019-11-18] MEDS ORDERED: Diltiazem 100 MG in Sodium Chloride 0.9% 100 ML IV SCH (16:15)
[2019-11-18] MEDS: Magnesium Oxide 400 MG Tab PO SCH (16:38)
[2019-11-18] MEDS: Diltiazem IR 60 MG Tab PO SCH (17:59)
--- NOTE | 2019-11-18 18:03 | PCM.HP.2 ---
H&P History of Present Illness - General Date of Service: 11/18/19 Admit Problem/Dx: Atria fibrillation with rapid venricular response Source of Information: Patient History Limitations: Reports: No Limitations - History of Present Illness Initial Comments - Free Text/Narative: Patidurgan with history of Atrilal Fibrillation for over a month with tachycardia who was referred from pain clinic for a fib with RVR to clinic who saw him and discussed with manager social responsibility . Caridiologist recommended Observation Admit Binh place on observation with plan to control rate and start anticoagulation. Onset of Symptoms: Reports: Other (Over 1 month ago > NO symptoms from rapid heart rate) - Related Data Allergies/Adverse Reactions: Allergies Allergy/AdvReac Type Severity Reaction Status Date / Time amoxicillin [From Augmentin] Allergy Rash Verified 05/29/19 10:35 clavulanic acid Allergy Rash Verified 05/29/19 10:35 [From Augmentin] Home Medications: Home Meds Simvastatin [Zocor] 20 mg PO BEDTIME 04/28/18 [History] Furosemide [Lasix] 20 mg PO DAILY 09/15/18 [History] Ipratropium/Albuterol Sulfate [Iprat-Albut 0.5-3(2.5) mg/3 ml] 1 ampule IH Q4H PRN 09/15/18 [History] LORazepam 0.5 - 1 tab PO BID PRN 09/15/18 [History] Alfuzosin HCl [Alfuzosin HCl ER] 10 mg PO DAILY 11/18/19 [History] Budesonide [Pulmicort] 0.5 mg IH BID 11/18/19 [History] Calcitonin ([place]) [Miacalcin] 1 spray BART DAILY 11/18/19 [History] Hydrocodone/Acetaminophen [[place] 10-325 Tablet] 1 each PO Q4H PRN 11/18/19 [History] Ibuprofen 800 mg PO TID PRN 11/18/19 [History] Lactobacillus Acidophilus [Acidophilus Lactobacilli] 2 cap PO DAILY 11/18/19 [History] Mirtazapine 7.5 mg PO BEDTIME 11/18/19 [History] Sodium Chloride 1 gm PO BID 11/18/19 [History] Tiotropium Br/Olodaterol HCl [Stiolto Respimat Inhal [place]] 2 puff IH DAILY 11/18/19 [History] predniSONE [Prednisone] 1 tab PO DAILY 11/18/19 [History] predniSONE [Prednisone] 1 tab PO DAILY 11/18/19 [History] Past Medical History HEENT History: Reports: Hard of Hearing Cardiovascular History: Reports: Arrhythmia, High Cholesterol, Hypertension Respiratory History: Reports: COPD Genitourinary History: Reports: Retention, Urinary, Other (See Below) Other Genitourinary History: stress incontinence Musculoskeletal History: Reports: Other (See Below) Other Musculoskeletal History: Generalized weakness Psychiatric History: Reports: Anxiety - Infectious Disease History Infectious Disease History: Reports: Chicken Pox - Past Surgical History Male Surgical History: Reports: None Social & Family History - Family History Family Medical History: Noncontributory - Tobacco Use Smoking Status *Q: Former Smoker Years of Tobacco use: 53 Used Tobacco, but Quit: Yes Month/Year Tobacco Last Used: 2017 Second Hand Smoke Exposure: No - Caffeine Use Caffeine Use: Reports: Coffee - Recreational Drug Use Recreational Drug Use: No H&P Review of Systems - Review of Systems: Review Of Systems: See Below General: Denies: Fever, Chills, Malaise Pulmonary: Denies: Shortness of Breath, Wheezing Cardiovascular: Reports: Dyspnea on Exertion. Denies: Chest Pain, Palpitations Gastrointestinal: Denies: Abdominal Pain, Nausea, Vomiting Genitourinary: Reports: No Symptoms Exam - Exam Exam: See Below - Vital Signs Vital Signs: Last Vital Signs Temp 97.9 F 11/18/19 15:22 Pulse 110 H 11/18/19 17:59 Resp 12 11/18/19 15:22 BP 109/73 11/18/19 17:59 Pulse Ox 85 L 11/18/19 15:22 Weight: 49.351 kg - Exam General: Alert, Oriented, Cooperative. No: Mild Distress Neck: Supple, Trachea Midline. No: JVD Lungs: Clear to Auscultation, Normal Respiratory Effort Cardiovascular: Irregular Rhythm, Tachycardia GI/Abdominal Exam: Soft, Non-Tender Extremities: Normal Inspection, Normal Range of Motion Skin: Warm, Intact Neurological: Cranial Nerves Intact, Normal Gait Neuro Extensive - Mental Status: Alert, Oriented x3, Normal Mood/Affect Neuro Extensive - Motor, Sensory, Reflexes: Normal Gait. No: Ataxia Psychiatric: Alert, Normal Affect, Normal Mood - Patient Data Lab Results Last 24 hrs: Labs from clinic reviewed Laboratory Results - last 24 hr 11/18/19 Range/Units 14:15 Magnesium 1.7 L (1.8-2.4) mg/dL Magnesium 1.7 Co2 34.6 Glucose 101 Poassium 2.7 TSH WNL CBC WBC 12.4 12.5/38.5 EKG INTERPRETATION EKG Date: 11/18/19 Time: 13:48 Rhythm: A-Fib Rate (Beats/Min): 148 Comparison: Other: (A fib with RVR) Sepsis Event Note - Evaluation Sepsis Screening Result: No Definite Risk - Focused Exam Vital Signs: Vital Signs Temp Pulse Pulse Resp BP BP Pulse Ox 11/18/19 17:59 110 H 109/73 11/18/19 15:22 97.9 F 156 H 12 109/73 85 L Date Exam was Performed: 11/18/19 Time Exam was Performed: 18:15 - Problem List (1) Atrial fibrillation with rapid ventricular response SNOMED Code(s): 001608257870879 ICD Code: I48.91 - UNSPECIFIED ATRIAL FIBRILLATION Status: Acute Current Visit: Yes Problem List Initiated/Reviewed/Updated: Yes Orders Last 24hrs: Active Orders 24 hr Category Date Time Status Cardiac Monitoring [RC] .As Directed Care 11/18/19 15:26 Active Oxygen Therapy [RC] ,20 Care 11/18/19 15:28 Active RT Aerosol Therapy [RC] .PRN Care 11/18/19 16:21 Active Regular Diet [DIET] Diet 11/19/19 Breakfast Ordered CULTURE MRSA SURVEY [RM] Routine Lab 11/18/19 17:48 Ordered Acetaminophen/HYDROcodone [[place] 325-10 MG] Med 11/18/19 16:12 Active 1 tab PO Q4H PRN Albuterol/Ipratropium [DuoNeb 3.0-0.5 MG/3 ML] Med 11/18/19 16:12 Active 3 ml INH Q4H PRN Alfuzosin HCl [Alfuzosin HCl ER] Med 11/19/19 08:00 Active 10 mg PO DAILY Apixaban [Eliquis] Med 11/18/19 20:00 Active 5 mg PO BID Budesonide [Pulmicort] Med 11/18/19 20:00 Active 0.5 mg INH BID Calcitonin ([place]) [Miacalcin] Med 11/19/19 08:00 Active 1 spray BART DAILY Diltiazem IR [Cardizem] Med 11/18/19 18:00 Active 60 mg PO Q6HR Diltiazem [Cardizem] 100 mg Med 11/18/19 16:15 Active Sodium Chloride 0.9% [Normal Saline] 100 ml IV TITRATE Furosemide [Lasix] Med 11/19/19 08:00 Active 20 mg PO DAILY LORazepam [Ativan] Med 11/18/19 16:12 Active 0.25 - 0.5 mg PO BID PRN Magnesium Oxide Med 11/18/19 16:15 Active 400 mg PO DAILY Mirtazapine [Mirtazapine] Med 11/18/19 20:00 Active 7.5 mg PO BEDTIME Potassium Chloride [Klor-Con M20] Med 11/19/19 08:00 Active 20 meq PO DAILY Sodium Chloride Med 11/18/19 20:00 Active 1 gm PO BID Sodium Chloride 0.9% [Saline Flush] Med 11/18/19 15:15 Active 10 ml FLUSH ASDIRECTED PRN Tiotropium Br/Olodaterol HCl [Stiolto Respimat Inhal Med 11/19/19 08:00 Active [place]] 2 puff IH DAILY predniSONE Med 11/27/19 08:00 Active 10 mg PO DAILY predniSONE Med 11/22/19 08:00 Active 20 mg PO DAILY predniSONE Med 11/18/19 16:00 Active 30 mg PO DAILY Saline Lock Insert [OM.PC] Routine Oth 11/18/19 15:15 Ordered Medication Orders Hydrocodone Bitart/Acetaminophen ([place] 325-10 Mg) 1 tab PO Q4H PRN PRN Reason: Pain Albuterol/Ipratropium (Duoneb 3.0-0.5 Mg/3 Ml) 3 ml INH Q4H PRN PRN Reason: Dyspnea Apixaban (Eliquis) 5 mg PO BID LETICIA Budesonide (Pulmicort) 0.5 mg INH BID LETICIA Diltiazem HCl (Cardizem) 60 mg PO Q6HR LETICIA Last Admin: 11/18/19 17:59 Dose: 60 mg Documented by: SIMON Furosemide (Lasix) 20 mg PO DAILY LET[facility]IA Diltiazem HCl 100 mg/ Sodium (Chloride) 100 mls @ 5 mls/hr IV TITRATE LETICIA; Protocol Last Titration: 11/18/19 16:52 Dose: 10 mg/hr, 10 mls/hr Documented by: Admin: 11/18/19 16:33 Dose: 5 mg/hr, 5 mls/hr Documented by: SALOMON Lorazepam (Ativan) 0.25 - 0.5 mg PO BID PRN PRN Reason: Anxiety Magnesium Oxide (Magnesium Oxide) 400 mg PO DAILY [facility] Last Admin: 11/18/19 16:38 Dose: 400 mg Documented by: SALOMON Non-Formulary Medication (Alfuzosin Hcl [Alfuzosin Hcl Er]) 10 mg PO DAILY [facility] Non-Formulary Medication (Calcitonin ([place]) [Miacalcin]) 1 spray BART DAILY [facility] Non-Formulary Medication (Tiotropium Br/Olodaterol Hcl [Stiolto Respimat Inhal [place]]) 2 puff IH DAILY [facility] Non-Formulary Medication (Mirtazapine [Mirtazapine]) 7.5 mg PO BEDTIME [facility] Potassium Chloride (Klor-Con M20) 20 meq PO DAILY [facility] Prednisone (Prednisone) 30 mg PO DAILY [facility] Stop: 11/21/19 16:01 Last Admin: 11/18/19 16:00 Dose: 30 mg Documented by: SALOMON Prednisone (Prednisone) 20 mg PO DAILY [facility] Stop: 11/26/19 08:01 Prednisone (Prednisone) 10 mg PO DAILY [facility] Stop: 12/01/19 08:01 Sodium Chloride (Saline Flush) 10 ml FLUSH ASDIRECTED PRN PRN Reason: Keep Vein Open Sodium Chloride (Sodium Chloride) 1 gm PO BID [facility] Course - Vital Signs Last Recorded V/S: Last Vital Signs Temp 97.9 F 11/18/19 15:22 Pulse 110 H 11/18/19 17:59 Resp 12 11/18/19 15:22 BP 109/73 11/18/19 17:59 Pulse Ox 85 L 11/18/19 15:22 - Orders/Labs/Meds Orders: Active Orders 24 hr Category Date Time Status Cardiac Monitoring [RC] .As Directed Care 11/18/19 15:26 Active Oxygen Therapy [RC] 08,20 Care 11/18/19 15:28 Active RT Aerosol Therapy [RC] .PRN Care 11/18/19 16:21 Active Regular Diet [DIET] Diet 11/19/19 Breakfast Ordered CULTURE MRSA SURVEY [RM] Routine Lab 11/18/19 17:48 Ordered Acetaminophen/HYDROcodone [[place] 325-10 MG] Med 11/18/19 16:12 Active 1 tab PO Q4H PRN Albuterol/Ipratropium [DuoNeb 3.0-0.5 MG/3 ML] Med 11/18/19 16:12 Active 3 ml INH Q4H PRN Alfuzosin HCl [Alfuzosin HCl ER] Med 11/19/19 08:00 Active 10 mg PO DAILY Apixaban [Eliquis] Med 11/18/19 20:00 Active 5 mg PO BID Budesonide [Pulmicort] Med 11/18/19 20:00 Active 0.5 mg INH BID Calcitonin ([place]) [Miacalcin] Med 11/19/19 08:00 Active 1 spray BART DAILY Diltiazem IR [Cardizem] Med 11/18/19 18:00 Active 60 mg PO Q6HR Diltiazem [Cardizem] 100 mg Med 11/18/19 16:15 Active Sodium Chloride 0.9% [Normal Saline] 100 ml IV TITRATE Furosemide [Lasix] Med 11/19/19 08:00 Active 20 mg PO DAILY LORazepam [Ativan] Med 11/18/19 16:12 Active 0.25 - 0.5 mg PO BID PRN Magnesium Oxide Med 11/18/19 16:15 Active 400 mg PO DAILY Mirtazapine [Mirtazapine] Med 11/18/19 20:00 Active 7.5 mg PO BEDTIME Potassium Chloride [Klor-Con M20] Med 11/19/19 08:00 Active 20 meq PO DAILY Sodium Chloride Med 11/18/19 20:00 Active 1 gm PO BID Sodium Chloride 0.9% [Saline Flush] Med 11/18/19 15:15 Active 10 ml FLUSH ASDIRECTED PRN Tiotropium Br/Olodaterol HCl [Stiolto Respimat Inhal Med 11/19/19 08:00 Active [place]] 2 puff IH DAILY predniSONE Med 11/27/19 08:00 Active 10 mg PO DAILY predniSONE Med 11/22/19 08:00 Active 20 mg PO DAILY predniSONE Med 11/18/19 16:00 Active 30 mg PO DAILY Saline Lock Insert [OM.PC] Routine Oth 11/18/19 15:15 Ordered Medication Orders Hydrocodone Bitart/Acetaminophen ([place] 325-10 Mg) 1 tab PO Q4H PRN PRN Reason: Pain Albuterol/Ipratropium (Duoneb 3.0-0.5 Mg/3 Ml) 3 ml INH Q4H PRN PRN Reason: Dyspnea Apixaban (Eliquis) 5 mg PO BID [facility] Budesonide (Pulmicort) 0.5 mg INH BID [facility] Diltiazem HCl (Cardizem) 60 mg PO Q6HR [facility] Last Admin: 11/18/19 17:59 Dose: 60 mg Documented by: SIMON Furosemide (Lasix) 20 mg PO DAILY [facility] Diltiazem HCl 100 mg/ Sodium (Chloride) 100 mls @ 5 mls/hr IV TITRATE LETICIA; Protocol Last Titration: 11/18/19 16:52 Dose: 10 mg/hr, 10 mls/hr Documented by: Admin: 11/18/19 16:33 Dose: 5 mg/hr, 5 mls/hr Documented by: SALOMON Lorazepam (Ativan) 0.25 - 0.5 mg PO BID PRN PRN Reason: Anxiety Magnesium Oxide (Magnesium Oxide) 400 mg PO DAILY [facility] Last Admin: 11/18/19 16:38 Dose: 400 mg Documented by: SALOMON Non-Formulary Medication (Alfuzosin Hcl [Alfuzosin Hcl Er]) 10 mg PO DAILY [facility] Non-Formulary Medication (Calcitonin ([place]) [Miacalcin]) 1 spray BART DAILY [facility] Non-Formulary Medication (Tiotropium Br/Olodaterol Hcl [Stiolto Respimat Inhal [place]]) 2 puff IH DAILY [facility] Non-Formulary Medication (Mirtazapine [Mirtazapine]) 7.5 mg PO BEDTIME [facility] Potassium Chloride (Klor-Con M20) 20 meq PO DAILY [facility] Prednisone (Prednisone) 30 mg PO DAILY [facility] Stop: 11/21/19 16:01 Last Admin: 11/18/19 16:00 Dose: 30 mg Documented by: SALOMON Prednisone (Prednisone) 20 mg PO DAILY [facility] Stop: 11/26/19 08:01 Prednisone (Prednisone) 10 mg PO DAILY [facility] Stop: 12/01/19 08:01 Sodium Chloride (Saline Flush) 10 ml FLUSH ASDIRECTED PRN PRN Reason: Keep Vein Open Sodium Chloride (Sodium Chloride) 1 gm PO BID [facility] Labs: Laboratory Tests 11/18/19 Range/Units 14:15 Magnesium 1.7 L (1.8-2.4) mg/dL Meds: Medications Generic Name Dose Route Start Last Admin Trade Name Freq PRN Reason Stop Dose Admin Hydrocodone Bitart/Acetaminophen 1 tab 11/18/19 16:12 [place] 325-10 Mg PO Q4H PRN Pain Albuterol/Ipratropium 3 ml 11/18/19 16:12 Duoneb 3.0-0.5 Mg/3 Ml INH Q4H PRN Dyspnea Apixaban 5 mg 11/18/19 20:00 Eliquis PO BID LETICIA Budesonide 0.5 mg 11/18/19 20:00 Pulmicort INH BID [facility] Diltiazem HCl 60 mg 11/18/19 18:00 11/18/19 17:59 Cardizem PO 60 mg Q6HR LETICIA Administration Furosemide 20 mg 11/19/19 08:00 Lasix PO DAILY [facility] Diltiazem HCl 100 mg/ Sodium 100 mls @ 5 mls/hr 11/18/19 16:15 11/18/19 16:52 Chloride IV 10 mg/hr TITRATE LETICIA 10 mls/hr Titration Protocol 5 MG/HR Lorazepam 0.25 - 0.5 mg 11/18/19 16:12 Ativan PO BID PRN Anxiety Magnesium Oxide 400 mg 11/18/19 16:15 11/18/19 16:38 Magnesium Oxide PO 400 mg DAILY [facility] Administration Non-Formulary Medication 10 mg 11/19/19 08:00 Alfuzosin Hcl [Alfuzosin Hcl Er] PO DAILY [facility] Non-Formulary Medication 1 spray 11/19/19 08:00 Calcitonin ([place]) [Miacalcin] BART DAILY [facility] Non-Formulary Medication 2 puff 11/19/19 08:00 Tiotropium Br/Olodaterol Hcl [Stiolto Respimat Inhal [place]] IH DAILY [facility] Non-Formulary Medication 7.5 mg 11/18/19 20:00 Mirtazapine [Mirtazapine] PO BEDTIME [facility] Potassium Chloride 20 meq 11/19/19 08:00 Klor-Con M20 PO DAILY [facility] Prednisone 30 mg 11/18/19 16:00 11/18/19 16:00 Prednisone PO 11/21/19 16:01 30 mg DAILY LETICIA Administration Prednisone 20 mg 11/22/19 08:00 Prednisone PO 11/26/19 08:01 DAILY LETICIA Prednisone 10 mg 11/27/19 08:00 Prednisone PO 12/01/19 08:01 DAILY LETICIA Sodium Chloride 10 ml 11/18/19 15:15 Saline Flush FLUSH ASDIRECTED PRN Keep Vein Open Sodium Chloride 1 gm 11/18/19 20:00 Sodium Chloride PO BID LETICIA Discontinued Medications Generic Name Dose Route Start Last Admin Trade Name Tommy PRN Reason Stop Dose Admin Diltiazem HCl 20 mg 11/18/19 15:12 11/18/19 15:39 Diltiazem IVPUSH 11/18/19 15:13 20 mg ONETIME ONE Administration Potassium Chloride 40 meq 11/18/19 15:23 11/18/19 15:50 Potassium Chloride Solution PO 11/18/19 15:24 40 meq ONETIME ONE Administration Prednisone 20 mg 11/18/19 16:00 Prednisone PO DAILY LETICIA Prednisone 10 mg 11/18/19 16:00 Prednisone PO DAILY LETICIA - Re-Assessments/Exams Free Text/Narrative Re-Assessment/Exam: 11/18/19 18:15 Patient with A fib with RVR Also with HYpokalemia and hypomagnesemia INitially treated with 40 meq of KCL oral Will start 20 meq po daily of KCL Will start magnesium 400 mg po daily Iniitally patient treated with 2 20 mg doses of cardiazem withsome slowing . Drip started at 5 mg/hour and then titrated to 10 mg /hour Plan to start po Diltiazem 60 mg po q6h . Will titrate drip to maintain HR less than 110 but not lower than 80 bpm Will DC tomorrow . Plan to continue simvastatin at 10 mg po daily at discharge due to interacdtion of simvastatin and diltiazem
[2019-11-18] MEDS ORDERED: Sodium Chloride 1 GM Tab PO SCH (20:00)
[2019-11-18] MEDS ORDERED: Non-Formulary Medication 1 Each (Mirtazapine [Mirtazapine] 7.5 MG) PO SCH (20:00)
[2019-11-18] MEDS ORDERED: Acetaminophen/HYDROcodone 325-10 MG Tab **OWN MED PO PRN (20:03)
[2019-11-18] MEDS ORDERED: MIRTAZAPINE 7.5 MG PO SCH (20:05)
[2019-11-18] MEDS: Budesonide 0.5 MG/2 ML Neb Susp INH SCH (21:33)
[2019-11-18] MEDS: Apixaban 5 MG Tab PO SCH (21:33)
[2019-11-19] MEDS: Diltiazem IR 60 MG Tab PO SCH ×2 (00:07→07:56)
[2019-11-19] MEDS ORDERED: Sodium Chloride 0.9% 1,000 ML IV SCH (00:15)
[2019-11-19] MEDS: Apixaban 5 MG Tab PO SCH (07:44)
[2019-11-19] MEDS: Magnesium Oxide 400 MG Tab PO SCH (07:45)
[2019-11-19] MEDS: Budesonide 0.5 MG/2 ML Neb Susp INH SCH (07:59)
[2019-11-19] MEDS ORDERED: Potassium Chloride 20 MEQ Tab.ER PO SCH (08:00)
[2019-11-19] MEDS ORDERED: Furosemide 20 MG Tab PO SCH (08:00)
[2019-11-19] MEDS ORDERED: Furosemide 20 MG Tab **OWN MED PO SCH (08:00)
[2019-11-19] MEDS ORDERED: SODIUM CHLORIDE 1 GM PO SCH (08:00)
[2019-11-19] MEDS ORDERED: PREDNISONE 10 MG PO SCH (08:00)
[2019-11-19] MEDS ORDERED: CALCITONIN NAS SCH (08:00)
[2019-11-19] MEDS ORDERED: ALFUZOSIN HCL 10 MG PO SCH (08:00)
--- NOTE | 2019-11-19 08:57 | PCM.PN ---
- General Info Date of Service: 11/19/19 Admission Dx/Problem (Free Text): Atria fibrillation with rapid venricular response Subjective Update: Patient report he is feeling fine this morning' Diltiazem held by nurses during the night due to HR in th 80s-90s. NO complaints this am from patient Functional Status: Reports: Other - Review of Systems General: Denies: Fever, Chills Pulmonary: Denies: Shortness of Breath, Cough Cardiovascular: Denies: Chest Pain, Palpitations Gastrointestinal: Denies: Nausea, Vomiting - Patient Data Vitals - Most Recent: Last Vital Signs Temp 98.2 F 11/19/19 06:31 Pulse 120 H 11/19/19 07:56 Resp 15 11/19/19 06:31 BP 125/76 11/19/19 07:56 Pulse Ox 98 11/19/19 06:31 Weight - Most Recent: 49.351 kg Lab Results Last 24 Hours: Laboratory Results - last 24 hr 11/18/19 Range/Units 14:15 Magnesium 1.7 L (1.8-2.4) mg/dL Med Orders - Current: Current Medications Hydrocodone Bitart/Acetaminophen ([place] 325-10 Mg) 1 tab PO Q4H PRN PRN Reason: Pain Last Admin: 11/18/19 21:34 Dose: 1 tab Documented by: Albuterol/Ipratropium (Duoneb 3.0-0.5 Mg/3 Ml) 3 ml INH Q4H PRN PRN Reason: Dyspnea Apixaban (Eliquis) 5 mg PO BID [facility]ICIA Last Admin: 11/19/19 07:44 Dose: 5 mg Documented by: Budesonide (Pulmicort) 0.5 mg INH BID [facility]ICIA Last Admin: 11/19/19 07:59 Dose: 0.5 mg Documented by: Diltiazem HCl (Cardizem) 60 mg PO Q6HR LETICIA Last Admin: 11/19/19 07:56 Dose: 60 mg Documented by: Furosemide (Lasix) 20 mg PO DAILY [facility] Diltiazem HCl 100 mg/ Sodium (Chloride) 100 mls @ 5 mls/hr IV TITRATE LETICIA; Protocol Last Titration: 11/18/19 18:22 Dose: 5 mg/hr, 5 mls/hr Documented by: Sodium Chloride (Normal Saline) 1,000 mls @ 325 mls/hr IV ASDIRECTED [facility] Last Admin: 11/19/19 00:28 Dose: 325 mls/hr Documented by: Lorazepam (Ativan) 0.25 - 0.5 mg PO BID PRN PRN Reason: Anxiety Last Admin: 11/18/19 21:40 Dose: 0.5 mg Documented by: Magnesium Oxide (Magnesium Oxide) 400 mg PO DAILY [facility] Last Admin: 11/19/19 07:45 Dose: 400 mg Documented by: Non-Formulary Medication (Alfuzosin Hcl [Alfuzosin Hcl Er]) 10 mg PO DAILY [facility] Non-Formulary Medication (Calcitonin ([place]) [Miacalcin]) 1 spray BART DAILY [facility] Non-Formulary Medication (Tiotropium Br/Olodaterol Hcl [Stiolto Respimat Inhal [place]]) 2 puff IH DAILY [facility] Mirtazapine 7.5 Mg (Tab Own Med) 0 mg PO BEDTIME [facility] Potassium Chloride (Klor-Con M20) 20 meq PO DAILY [facility] Last Admin: 11/19/19 07:45 Dose: 20 meq Documented by: Prednisone (Prednisone) 30 mg PO DAILY [facility] Stop: 11/21/19 08:01 Last Admin: 11/19/19 07:47 Dose: Not Given Documented by: Prednisone (Prednisone) 20 mg PO DAILY [facility] Stop: 11/26/19 08:01 Prednisone (Prednisone) 10 mg PO DAILY [facility] Stop: 12/01/19 08:01 Sodium Chloride (Saline Flush) 10 ml FLUSH ASDIRECTED PRN PRN Reason: Keep Vein Open Sodium Chloride (Sodium Chloride) 1 gm PO BID [facility] Discontinued Medications Hydrocodone Bitart/Acetaminophen ([place] 325-10 Mg) 1 tab PO Q4H PRN PRN Reason: Pain Diltiazem HCl (Diltiazem) 20 mg IVPUSH ONETIME ONE Stop: 11/18/19 15:13 Last Admin: 11/18/19 16:05 Dose: 20 mg Documented by: Furosemide (Lasix) 20 mg PO DAILY [facility] Non-Formulary Medication (Mirtazapine [Mirtazapine]) 7.5 mg PO BEDTIME [facility] Last Admin: 11/18/19 23:15 Dose: Not Given Documented by: Potassium Chloride (Potassium Chloride Solution) 40 meq PO ONETIME ONE Stop: 11/18/19 15:24 Last Admin: 11/18/19 15:50 Dose: 40 meq Documented by: Prednisone (Prednisone) 20 mg PO DAILY [facility] Prednisone (Prednisone) 10 mg PO DAILY [facility] Prednisone (Prednisone) 30 mg PO DAILY [facility] Stop: 11/21/19 16:01 Last Admin: 11/18/19 16:00 Dose: 30 mg Documented by: Prednisone (Prednisone) 20 mg PO DAILY [facility] Stop: 11/26/19 08:01 Prednisone (Prednisone) 10 mg PO DAILY [facility] Stop: 12/01/19 08:01 Sodium Chloride (Sodium Chloride) 1 gm PO BID [facility] Last Admin: 11/18/19 23:16 Dose: Not Given Documented by: - Exam General: Alert, Oriented, Cooperative, No Acute Distress Neck: Supple, No JVD Lungs: Clear to Auscultation, Normal Respiratory Effort Cardiovascular: Irregular Rhythm, Tachycardia GI/Abdominal Exam: Soft, Non-Tender Extremities: Normal Range of Motion Skin: Warm, Dry EKG INTERPRETATION EKG Date: 11/19/19 Sepsis Event Note - Evaluation Sepsis Screening Result: No Definite Risk - Focused Exam Vital Signs: Vital Signs Temp Pulse Pulse Resp BP BP Pulse Ox 11/19/19 07:56 120 H 125/76 11/19/19 06:31 98.2 F 96 15 128/73 98 11/19/19 05:21 74 12 111/69 94 L 11/19/19 05:01 84 12 109/80 95 11/19/19 04:39 78 11 L 117/68 95 11/19/19 04:22 96 13 100/60 96 11/19/19 03:37 75 10 L 102/65 96 11/19/19 02:46 68 10 L 102/57 L 96 11/19/19 02:32 74 11 L 98/59 L 95 11/19/19 02:16 74 11 L 110/59 L 96 11/19/19 02:07 80 11 L 115/79 96 11/19/19 00:36 64 10 L 95/53 L 96 11/18/19 23:38 68 11 L 91/51 L 94 L 11/18/19 23:10 70 12 91/56 L 94 L Date Exam was Performed: 11/19/19 Time Exam was Performed: 10:09 - Problem List & Annotations (1) Atrial fibrillation with rapid ventricular response SNOMED Code(s): 281795779875074 Code(s): I48.91 - UNSPECIFIED ATRIAL FIBRILLATION Status: Acute Current Visit: Yes - Problem List Review Problem List Initiated/Reviewed/Updated: Yes - My Orders Last 24 Hours: My Active Orders 11/18/19 15:15 Sodium Chloride 0.9% [Saline Flush] 10 ml FLUSH ASDIRECTED PRN Saline Lock Insert [OM.PC] Routine 11/18/19 15:26 Cardiac Monitoring [RC] .As Directed 11/18/19 15:28 Oxygen Therapy [RC] 11/18/19 16:00 Admission Status [Patient Status] [ADT] Routine 11/18/19 16:12 Albuterol/Ipratropium [DuoNeb 3.0-0.5 MG/3 ML] 3 ml INH Q4H PRN LORazepam [Ativan] 0.25 - 0.5 mg PO BID PRN 11/18/19 16:15 Diltiazem [Cardizem] 100 mg Sodium Chloride 0.9% [Normal Saline] 100 ml IV TITRATE Magnesium Oxide 400 mg PO DAILY 11/18/19 16:21 RT Aerosol Therapy [RC] .PRN 11/18/19 18:00 Diltiazem IR [Cardizem] 60 mg PO Q6HR 11/18/19 20:00 Apixaban [Eliquis] 5 mg PO BID Budesonide [Pulmicort] 0.5 mg INH BID 11/18/19 20:03 Acetaminophen/HYDROcodone [[place] 325-10 MG] 1 tab PO Q4H PRN 11/18/19 20:05 Mirtazapine [Mirtazapine] 0 mg PO BEDTIME 11/18/19 20:14 CULTURE MRSA SURVEY [RM] Routine 11/19/19 00:15 Sodium Chloride 0.9% [Normal Saline] 1,000 ml IV ASDIRECTED 11/19/19 02:11 Resuscitation Status Routine 11/19/19 Breakfast Regular Diet [DIET] 11/19/19 07:56 BASIC METABOLIC PANEL,BMP [CHEM] Routine MAGNESIUM [CHEM] Routine 11/19/19 08:00 Alfuzosin HCl [Alfuzosin HCl ER] 10 mg PO DAILY Calcitonin ([place]) [Miacalcin] 1 spray BART DAILY Furosemide [Lasix] 20 mg PO DAILY Potassium Chloride [Klor-Con M20] 20 meq PO DAILY Sodium Chloride 1 gm PO BID Tiotropium Br/Olodaterol HCl [Stiolto Respimat Inhal [place]] 2 puff IH DAILY predniSONE 30 mg PO DAILY 11/22/19 08:00 predniSONE 20 mg PO DAILY 11/27/19 08:00 predniSONE 10 mg PO DAILY - Assessment Assessment:: Assessment A fib with RVR improved with Diltiazem Hypokalemia improved Hypomagnesemia Plan initially given 10 mg diltiazem IV this am after po held by nurses thru the night Diltiazem 60 mg given this am and will prescribe diltiazem LA 340 mg daily starting today Decrease Simvastatin to 10 mg po daily due to interaction with diltiazem Start KCL 10 meq po daily for hypokalemia due to Lasix Continue Mag Oxide 400 mg po daily due to mild hypomagnesemia Follow up in clinic next week for recheck
[2019-11-19] MEDS ORDERED: Diltiazem 25 MG/5 ML SDV IVPUSH ONE (09:01)
--- NOTE | 2019-11-20 10:38 | PCM.DCSUM1 ---
Discharge Summary - Hospital Course Free Text/Narrative:: Patient was without symptoms. Came to ED for A fib with RVR and was placed on Observation status to allow control of rate. Iniitally treated wiht 2 IV boluses of Diltiazem and then drip started and titrated .Oral diltiazem strted at 60 mg q6h. Diltiazem held due to decreased heart rate and restrted am along with 10 mg IV diltiazem bolus. Started on Diltiazem LA 240 mg po daily prior to discharge. Patietn started on Eliquis 5 mg po bid. HPI Initial Comments: See ED note Diagnosis: Stroke: No Modified [place] Scale: No Symptoms at All Modified [place] Scale Score: 0 - Discharge Data Discharge Date: 11/19/19 Discharge Disposition: Home, Self-Care 01 Condition: Fair - Referral to Home Health Primary Care Physician: PCP None - Discharge Diagnosis/Problem(s) (1) Atrial fibrillation with rapid ventricular response SNOMED Code(s): 985829008467822 ICD Code: I48.91 - UNSPECIFIED ATRIAL FIBRILLATION Status: Chronic - Discharge Plan Home Medications: Home Meds Simvastatin [Zocor] 10 mg PO BEDTIME 04/28/18 [History] Furosemide [Lasix] 20 mg PO DAILY 09/15/18 [History] Ipratropium/Albuterol Sulfate [Iprat-Albut 0.5-3(2.5) mg/3 ml] 1 ampule IH Q4H PRN 09/15/18 [History] LORazepam 0.5 - 1 tab PO BID PRN 09/15/18 [History] Alfuzosin HCl [Alfuzosin HCl ER] 10 mg PO DAILY 11/18/19 [History] Budesonide [Pulmicort] 0.5 mg IH BID 11/18/19 [History] Calcitonin ([place]) [Miacalcin] 1 spray BART DAILY 11/18/19 [History] Hydrocodone/Acetaminophen [[place] 10-325 Tablet] 1 each PO Q4H PRN 11/18/19 [History] Lactobacillus Acidophilus [Acidophilus Lactobacilli] 2 cap PO DAILY 11/18/19 [History] Mirtazapine 7.5 mg PO BEDTIME 11/18/19 [History] Sodium Chloride 1 gm PO BID 11/18/19 [History] Tiotropium Br/Olodaterol HCl [Stiolto Respimat Inhal [place]] 2 puff IH DAILY 11/18/19 [History] predniSONE [Prednisone] 1 tab PO DAILY 11/18/19 [History] predniSONE [Prednisone] 1 tab PO DAILY 11/18/19 [History] Diltiazem HCl [Cardizem LA] 240 mg PO DAILY 11/19/19 [History] Magnesium Oxide 400 mg PO DAILY 11/19/19 [History] Potassium Chloride [Klor-Con 10] 10 meq PO DAILY 11/19/19 [History] Patient Handouts: Atrial Fibrillation, [id number] - Discharge Summary/Plan Comment DC Time >30 min.: Yes Discharge Summary/Plan Comment: Patietn to folow up with clinic next week for recheck - Patient Data Vitals - Most Recent: Last Vital Signs Temp 97.6 F 11/19/19 10:00 Pulse 104 H 11/19/19 10:00 Resp 24 H 11/19/19 10:00 BP 110/62 11/19/19 10:00 Pulse Ox 92 L 11/19/19 10:00 Weight - Most Recent: 49.351 kg MARQUES Results - Last 24 hrs: Microbiology 11/18/19 20:14 MRSA Surveillance Culture - Final Nares, Right NO MRSA ISOLATED Med Orders - Current: Current Medications Discontinued Medications Hydrocodone Bitart/Acetaminophen ([place] 325-10 Mg) 1 tab PO Q4H PRN PRN Reason: Pain Hydrocodone Bitart/Acetaminophen ([place] 325-10 Mg) 1 tab PO Q4H PRN PRN Reason: Pain Last Admin: 11/18/19 21:34 Dose: 1 tab Documented by: Albuterol/Ipratropium (Duoneb 3.0-0.5 Mg/3 Ml) 3 ml INH Q4H PRN PRN Reason: Dyspnea Apixaban (Eliquis) 5 mg PO BID [facility] Last Admin: 11/19/19 07:44 Dose: 5 mg Documented by: Budesonide (Pulmicort) 0.5 mg INH BID [facility] Last Admin: 11/19/19 07:59 Dose: 0.5 mg Documented by: Diltiazem HCl (Diltiazem) 20 mg IVPUSH ONETIME ONE Stop: 11/18/19 15:13 Last Admin: 11/18/19 16:05 Dose: 20 mg Documented by: Diltiazem HCl (Cardizem) 60 mg PO Q6HR LETICIA Last Admin: 11/19/19 07:56 Dose: 60 mg Documented by: Diltiazem HCl (Diltiazem) 10 mg IVPUSH ONETIME ONE Stop: 11/19/19 09:02 Last Admin: 11/19/19 09:26 Dose: 10 mg Documented by: Furosemide (Lasix) 20 mg PO DAILY LETICIA Furosemide (Lasix) 20 mg PO DAILY LETICIA Last Admin: 11/19/19 08:00 Dose: 20 mg Documented by: Diltiazem HCl 100 mg/ Sodium (Chloride) 100 mls @ 5 mls/hr IV TITRATE LETICIA; Protocol Last Titration: 11/18/19 18:22 Dose: 5 mg/hr, 5 mls/hr Documented by: Sodium Chloride (Normal Saline) 1,000 mls @ 325 mls/hr IV ASDIRECTED [facility] Last Admin: 11/19/19 00:28 Dose: 325 mls/hr Documented by: Lorazepam (Ativan) 0.25 - 0.5 mg PO BID PRN PRN Reason: Anxiety Last Admin: 11/18/19 21:40 Dose: 0.5 mg Documented by: Magnesium Oxide (Magnesium Oxide) 400 mg PO DAILY [facility] Last Admin: 11/19/19 07:45 Dose: 400 mg Documented by: Non-Formulary Medication (Alfuzosin Hcl [Alfuzosin Hcl Er]) 10 mg PO DAILY [facility] Non-Formulary Medication (Calcitonin ([place]) [Miacalcin]) 1 spray BART DAILY [facility] Non-Formulary Medication (Tiotropium Br/Olodaterol Hcl [Stiolto Respimat Inhal [place]]) 2 puff IH DAILY [facility] Non-Formulary Medication (Mirtazapine [Mirtazapine]) 7.5 mg PO BEDTIME LETICIA Last Admin: 11/18/19 23:15 Dose: Not Given Documented by: Mirtazapine 7.5 Mg (Tab Own Med) 0 mg PO BEDTIME LETICIA Potassium Chloride (Klor-Con M20) 20 meq PO DAILY [facility] Last Admin: 11/19/19 07:45 Dose: 20 meq Documented by: Potassium Chloride (Potassium Chloride Solution) 40 meq PO ONETIME ONE Stop: 11/18/19 15:24 Last Admin: 11/18/19 15:50 Dose: 40 meq Documented by: Prednisone (Prednisone) 20 mg PO DAILY [facility] Prednisone (Prednisone) 10 mg PO DAILY [facility] Prednisone (Prednisone) 30 mg PO DAILY [facility] Stop: 11/21/19 16:01 Last Admin: 11/18/19 16:00 Dose: 30 mg Documented by: Prednisone (Prednisone) 20 mg PO DAILY [facility] Stop: 11/26/19 08:01 Prednisone (Prednisone) 10 mg PO DAILY [facility] Stop: 12/01/19 08:01 Prednisone (Prednisone) 30 mg PO DAILY [facility] Stop: 11/21/19 08:01 Last Admin: 11/19/19 07:47 Dose: Not Given Documented by: Prednisone (Prednisone) 20 mg PO DAILY [facility] Stop: 11/26/19 08:01 Prednisone (Prednisone) 10 mg PO DAILY [facility] Stop: 12/01/19 08:01 Sodium Chloride (Saline Flush) 10 ml FLUSH ASDIRECTED PRN PRN Reason: Keep Vein Open Sodium Chloride (Sodium Chloride) 1 gm PO BID [facility] Last Admin: 11/18/19 23:16 Dose: Not Given Documented by: Sodium Chloride (Sodium Chloride) 1 gm PO BID [facility] Last Admin: 11/19/19 08:00 Dose: 1 gm Documented by:
[2019-11-22] MEDS ORDERED: PREDNISONE 10 MG PO SCH (08:00)
[2019-11-22] MEDS ORDERED: predniSONE 20 MG Tab PO SCH (08:00)
[2019-11-27] MEDS ORDERED: PREDNISONE 10 MG PO SCH (08:00)
[2019-11-27] MEDS ORDERED: predniSONE 10 MG Tab PO SCH (08:00)
== END 2019-11-19 10:45 | disposition home or self-care (01) ==
LOC: LB.MS 15:00
PROVIDERS: ADMIT Emergency Medicine; ATTEND Emergency Medicine
DX: I48.91 Unspecified atrial fibrillation (principal); E87.6 Hypokalemia; E83.42 Hypomagnesemia; E78.00 Pure hypercholesterolemia, unspecified; I10 Essential (primary) hypertension; J44.9 Chronic obstructive pulmonary disease, unspecified; F41.9 Anxiety disorder, unspecified; Z88.0 Allergy status to penicillin; Z88.1 Allergy status to other antibiotic agents; Z79.899 Other long term (current) drug therapy; Z87.891 Personal history of nicotine dependence; Z79.51 Long term (current) use of inhaled steroids
CPT/HCPCS: 36415; 80048; 83735; 96361; 96374; A9270-GY; G0378; G0379; J3490; J7030; J7050; J7512

== ENCOUNTER 2020-01-20 10:39 | Emergency (ER) | payer OTHER ==
[2020-01-20] MEDS ORDERED: Ketorolac 30 MG/ML SDV IM ONE (11:24)
[2020-01-20] MEDS ORDERED: Ketorolac 30 MG/ML SDV ONE (11:34)
--- NOTE | 2020-01-21 12:17 | ER ---
HISTORY OF PRESENT ILLNESS: A 69-year-old male here with complaints of ongoing low back pain that is flaring up. The patient has had chronic history of the same issues. It looks like he was last seen here the end of September for this. Scans in the past have revealed compression fracture from T11-L4. The patient tells me this is the same old pain. He is out of his pain medications, which is hydrocodone. He states when he comes in, he usually gets a shot and a few pills that get him through until his next appointment usually. The patient denies any recent falls or injuries. He is here with his . OBJECTIVE: GENERAL APPEARANCE: The patient is awake and alert, no obvious distress in the sitting position. MUSCULOSKELETAL: Examining his low back reveals pain on both sides of the lower lumbar spine. There is no obvious swelling or discoloration of the skin. DIAGNOSIS: Low back pain with chronic history of the same. TREATMENT PLAN: I will treat the patient the same as the last time he was in. We will give him Toradol 30 mg IM. We will monitor the patient for about 30 minutes. If his pain improves, he will be sent home. I will give him some hydrocodone tablets 10/325, 12 tablets to take as needed, and the patient is to follow up with his primary care provider within a few days for a recheck, sooner as needed. ADDENDUM: The patient did improve with the Toradol and was discharged from our emergency room. MIREYA/ALMA /[id number]
== END 2020-01-20 11:39 | disposition home or self-care (01) ==
LOC: LB.ED 10:39
DX: G89.29 Other chronic pain (principal); M54.5 Low back pain
CPT/HCPCS: 96372; 99283; J1885

== ENCOUNTER 2020-01-23 10:36 | Emergency (ER) | payer OTHER ==
[2020-01-23] MEDS ORDERED: Acetaminophen/oxyCODONE 325-5 MG Tab ONE (11:00)
[2020-01-23] MEDS ORDERED: Ketorolac 30 MG/ML SDV ONE (11:35)
[2020-01-23] MEDS ORDERED: Ketorolac 60 MG/2 ML SDV IM ONE (11:43)
--- NOTE | 2020-01-23 16:59 | ER ---
REASON FOR EMERGENCY ROOM VISIT: Recurrent chronic back pain. HISTORY: This unfortunate 69-year-old gentleman has had problems with chronic back pain for at least the 6 months or so. He has had MRI evaluations of his back, which have demonstrated partial compression fractures of T11 through L4, none of which are over 20% of the height of the vertebrae. He has had [id number] disk bulging and [id number] foraminal stenosis as a consequence of this and arthritis in his thoracolumbar spine. He has never had any radiculopathy. His pain is always limited to his back or just lateral to the back on one side or the other. He states that the pain varies from the lower back to the mid back area and this has been consistent with his pattern in the past. He has not had any radiation of the pain down his leg. He denies any numbness or muscle weakness. He has not had any issues with continence. He has been followed in [facility] where in the past, trigger point injections have worked remarkably well according to the patient. He did have an appointment for another visit to the [facility] approximately 2 weeks ago. However, due to issues that arose with the provider, that appointment had to be canceled and rescheduled. He is scheduled to be seen again in the Pain Clinic in 5 days' time. He has taken hydrocodone in the past and it has only worked moderately well. The last time he took it, he states that did not help him very much at all. Toradol in the past has helped when I administered it but it of course only helped for a short period of time and narcotics had to be given following that. Subsequent to his trigger point injections, he has required no pain medications to speak of. PAST MEDICAL HISTORY: Significant for: 1. Hypertension. 2. Hypercholesterolemia. 3. COPD. 4. Decreased hearing. 5. History of hyponatremia. 6. Back pain with compression fractures (see above). 7. History of atrial fibrillation with rapid ventricular response. SOCIAL HISTORY: He is retired and lives with his . He is a former smoker and still drinks occasional alcohol. MEDICATIONS: Reviewed and they include prednisone 10 mg p.o. daily, simvastatin 20 mg p.o. at bedtime, lorazepam 0.5 mg p.o. t.i.d. p.r.n., ipratropium and albuterol inhaler q.i.d., Lasix 20 mg p.o. daily, and Symbicort. ALLERGIES: HE IS ALLERGIC TO AMOXICILLIN CLAVULANATE. REVIEW OF SYSTEMS: Pertinent positives and negatives as listed in the HPI. PHYSICAL EXAMINATION: GENERAL: He is an alert, pleasant man who is uncomfortable, but in no acute distress. He is afebrile. Blood pressure 132/72, respirations 20, O2 sats 91% on room air. HEENT unremarkable. NECK: Supple and nontender to passive range of motion. CHEST: He has a few scattered rhonchi and no wheezes. CARDIAC: Regular rate without murmur. ABDOMEN: Soft and nontender. EXTREMITIES: He has bilateral ankle edema which is moderate. His feet are pink and warm. Examination of his spine, he has no tenderness to percussion over the spinous processes. He does have some point tenderness bilaterally just lateral to the paraspinal muscles at approximately the thoracolumbar junction. These are reproducible areas of tenderness and bilaterally he does not have any sacroiliac tenderness to palpation at this time. Straight leg raising is negative. Deep tendon reflexes and muscle strength bulk and tone are normal and symmetrical bilaterally. Sensation is intact. Station and gait were not tested. IMPRESSION: Chronic back pain secondary to compression fractures and osteoarthritis. PLAN: He really needs something to get him over the next few days until he can get to the Pain Clinic. The genao for him is going to be continuing trigger point injections. It does not appear that the findings on MRI warrant any more aggressive surgical-type approach, but he has seen someone for this as well. He was given oxycodone with acetaminophen 5/325, dispensed #10, one to two every 4 hours p.r.n. pain. This was given from the pharmacy here and we also gave him a prescription for 15 more tablets to be filled separately and I have a feeling he will need this as well. Should any problems or concerns arise, he will get back with us. He did get one IM injection of Toradol 30 mg prior to leaving. All questions were answered. He understands and agrees with this plan. MATEUSZ/ALMA /[id number]
== END 2020-01-23 11:35 | disposition home or self-care (01) ==
LOC: LB.ED 10:36
DX: G89.29 Other chronic pain (principal); M54.5 Low back pain; M54.6 Pain in thoracic spine; I10 Essential (primary) hypertension; J44.9 Chronic obstructive pulmonary disease, unspecified; I48.91 Unspecified atrial fibrillation; E78.00 Pure hypercholesterolemia, unspecified; Z79.899 Other long term (current) drug therapy; Z87.891 Personal history of nicotine dependence
CPT/HCPCS: 96372; 99283; A9270; J1885